=== PATIENT | male | born 1940 | race Caucasian/White ===

== ENCOUNTER → 2018-06-13 15:37 | Outpatient (CLI) | payer MEDICARE, SELFPAY | PROVIDERS: Family Provider Internal Medicine; PCP Internal Medicine; Referring Provider Otolaryngology Otolaryngology/Facial Plastic Surgery; Visit Provider Otolaryngology Otolaryngology/Facial Plastic Surgery | DX: H92.10 Otorrhea, unspecified ear (principal) | CPT/HCPCS: 87070; 87075; 87205 ==

== ENCOUNTER 2018-07-11 20:08 | Emergency (ER) | payer MEDICARE, SELFPAY ==
[2018-07-11 20:09] VITALS: BP 153/78; PULSE 68; RESP 18; TEMP 36.9; O2SAT 95; BMI 29.2
[2018-07-11 20:19] VITALS: O2SAT 97
--- NOTE | 2018-07-11 21:02 | CT_ITS ---
We are attempting to reach Yeimi Nuñez MD to discuss findings. An addendum with communication details will be sent when the communication is complete. STUDY: CT ABDOMEN AND PELVIS WITHOUT CONTRAST REASON FOR EXAM: Male, 78 years old. Pelvic injury riding a horse RADIATION DOSAGE (If Supplied By Facility): CTDIvol = ( 18.34 ) mGy, DLP = ( 1565.77 ) mGycm TECHNIQUE: Transaxial images were obtained from the dome of the diaphragm to the symphysis pubis without oral contrast, and without intravenous contrast. Sagittal and coronal images were reconstructed. Individualized dose optimization techniques were used for this CT. COMPARISON: None. FINDINGS: The visualized lung bases are unremarkable. There are coronary calcifications. Normal liver. Normal gallbladder and extrahepatic biliary system. Normal spleen. Normal pancreas. Normal bilateral adrenal glands. Normal right kidney. There is bilateral perinephric stranding. Normal visualized stomach. Normal small intestine. There is moderate stool in the colon. There is non-visualization of the appendix. Aorta is partially calcified. The infrarenal aorta measures 3.4 x 3.1 cm. Normal inferior vena cava. Normal retroperitoneum. The bladder is distended. There is fluid adjacent to the bilateral aspect of the bladder. There is a focus of 3.9 x 4.1 cm hematoma anterior to the bladder. The prostate is mildly enlarged. There is been a acute traumatic diastases of the symphysis pubis. There is adjacent hematoma and fluid tracking in the extraperitoneal spaces. There is a edematous appearance of the base of the penis. The sagittal view image #97 suggests that there may be a subtle fracture of the left side inferior pubic ramus. The bilateral acetabulum. A be intact. There is no evidence of fracture of the proximal femurs. There is degenerative change of the lumbar spine. There is multilevel disc space narrowing spondylosis. At the level of L2-3, to a greater degree L3-L4 and L4-L5 there is a broad disc osteophyte protrusion with moderate to severe neural foramina narrowing and moderate to severe central stenosis and particular the level of L3-L4. At L5-S1 there is a broad disc bulge and moderate neural foramina narrowing. There is vacuum phenomenon in the SI joints. They do not appear to be particularly widened. CT/Abdomen/Pelvis without Cont IMPRESSION: Findings are consistent with an acute diastases of the symphysis pubis with underlying extraperitoneal hematoma and a ligamentous injury. There is edema at the base of the penis. Recommend correlation with bladder laboratory values. Cannot entirely exclude a bladder rupture or injury. There is questionably a nondisplaced fracture of the left inferior pubic ramus. The SI joints are symmetric and degenerative. There is advanced degenerative change of the lower lumbar spine with severe neural foramina narrowing at the level of L3-L4 and L4-L5 with moderate to severe central stenosis. Coronary artery calcification. Electronically Signed: Raisa Jacome MD at 23:31 EDT Tel , Service support ,
[2018-07-11 21:18] VITALS: BP 163/87; PULSE 69; RESP 18; O2SAT 97
[2018-07-11] MEDS: 0.9% Normal Saline 1,000 ML 150 ML IV (21:18)
[2018-07-11 21:39] LABS: Absolute Lymphocyte Count 1.18 X10^3/ul (0.83-4.51); Absolute Neutrophil Count 9.4 X10^3/uL (2.0-7.7); Basophil# 0.02 X10^3/uL; Basophil% 0.2 % (0-1); Eosinophil# 0.23 X10^3/uL; Hematocrit 40.7 % (40-54); Hemoglobin 13.4 g/dl (13.0-16.5); Lymphocyte # 1.18 X10^3/ul (4.0); Lymphocyte % 10.2 % (19-41); Mean Corp Hgb Conc 32.9 g/gl (32-36); Mean Corpuscular Hgb 31.4 pg (27.0-32.0); Mean Corpuscular Volume 95.3 fL (80-94); Monocyte# 0.77 X10^3/uL; Monocyte% 6.6 % (0-10); Neutrophil # 9.39 X10^3/uL (2.7-7.7); Neutrophil % 80.8 % (47-70); Platelet Count 233 K/mm3 (150-450); RBC Distribution Width CV 13.2 % (11.6-14.6); RBC Distribution Width SD 45.7 fl (35.1-43.9); Red Blood Count 4.27 M/mm3 (4.6-6.2); White Blood Count 11.6 K/mm3 (4.4-11.0)
[2018-07-11 21:44] LABS: POSITIVE COUNT NO; POSITIVE DIFFERENTIAL NO; POSITIVE MORPHOLOGY NO
[2018-07-11 21:50] LABS: Anion Gap 6 (5-15); BUN 20 mg/dL (7-18); BUN/Creat Ratio 20.9 RATIO (10-20); Calcium,Total 8.7 mg/dL (8.5-10.1); Chloride 107 mmol/L (98-107); Creatinine, Serum 0.96 mg/dL (0.70-1.30); EST Glomerular Filtration Rate 81 mL/min (>60); Est Glom Filt Rate - Afr Amer 98 mL/min (>60); Estimated Creatinine Clearance 77.86 ml/min; Glucose 110 mg/dL (74-106); Potassium 4.5 mmol/L (3.5-5.1); Sodium Level 139 mmol/L (136-145)
[2018-07-11] MEDS: Morphine 4 MG/ML Syringe IV (22:06)
[2018-07-11] MEDS: Ondansetron 4 MG/2 ML Vial IV (22:06)
[2018-07-11 22:09] VITALS: BP 162/108; PULSE 67; RESP 16; O2SAT 94
[2018-07-11 23:16] VITALS: BP 170/81; PULSE 67; RESP 18; O2SAT 97
--- NOTE | 2018-07-12 00:02 | ED.DCSUM_ITS ---
- ER Visit Summary Date of Service: 07/11/18 Chief Complaint: [Pelvic injury] History of Present Illness: The patient is a 78 M [presents the emergency department complaint of a pelvic injury that occurred around 5 PM today. Patient states that he was riding a horse when the horse slipped forward and he was thrown back in the saddle and then abruptly forward again and felt a pop in the suprapubic area of his abdomen as he did the splits up against the front of the saddle. Patient unable to get off the horse or walk without assistance. Patient denies falling off of the horse. He denies any other injuries. Does describe some mild discomfort in his low back. Patient had some mild numbness in the right foot.] Physical Examination: HEENT-PERRLA, EOMI. Cranial nerves II through XII grossly intact. TMs clear. Mucous membranes moist. No adenopathy. Cardiovascular-regular rate and rhythm without murmur or ectopy Lungs-clear to auscultation, chest wall stable without crepitus or subcu emphysema Abdomen-normoactive bowel sounds, soft. Patient does have some tenderness over suprapubic region with some guarding. There is no rebound, rigidity, or perineal signs. There is no ecchymosis or bruising noted. There is no blood at the urethral meatus. No evidence of trauma to his penis or testicles. Back exam-patient has some mild tenderness diffusely about the lumbar spine. No ecchymosis or bruising noted. Extremities-intact ?4, normal range of motion, normal pulses, atraumatic] Test Results: [CBC with differential was normal. Chemistries were unremarkable. CT scan of the abdomen and pelvis without contrast showed findings consistent with acute diastasis of the symphysis pubis with underlying extraperitoneal hematoma and a ligamentous injury there is edema at the base of the penis. Recommend correlation with bladder lab values. Cannot entirely exclude bladder rupture or injury. There is questionably nondisplaced fracture of the left inferior pubic ramus. The SI joints are symmetric and degenerative. There is advanced degenerative change of the lower lumbar spine with severe neuroforaminal narrowing at level of L3-4 and L4-5 with moderate to severe central stenosis.] Emergency Department Course and Treatment: [Patient was medicated with morphine and Zofran. I discussed case with Dr. Markus Jessica who is on for orthopedics and given that patient cannot walk and will require admission he recommended transfer to tertiary care center.] Treatment Plan: [Case was discussed with [facility] physician Dr. Ayala who accepted transfer of patient.] Disposition: [Transfer to [facility]] Impression: [Diastasis of the pubic rami status post trauma Left inferior pubic ramus fracture Inability to ambulate] This note was generated with [employer] dictation software. It may contain incorrect words, spelling, and punctuation that were not noted in review of the chart prior to signing ED Disposition - Plan for ED Patient: Referrals: Kolby Singh MD [Primary Care Provider] -
[2018-07-12 00:20] LABS: Red Blood Cells-Urine 0 SEEN /hpf (0-5); White Blood Cells 0 SEEN /hpf (0-5)
[2018-07-12 00:22] LABS: Color, Urine Yellow (Yellow); Glucose, Dipstick Normal (Normal); Ketone-Dipstick Negative (Negative); Leukocyte Esterase-Dipstick Negative /ul (Negative); Nitrite-Dipstick Negative (Negative); Occult Blood-Urine Negative /ul (Negative); Protein-Dipstick Negative (Negative); Specific Gravity, Urine 1.015 (1.002-1.030); Urine Bilirubin Dipstick Negative (Negative); Urine Clarity Sl. Cloudy (Clear); Urine Urobilinogen 1 mg/dl (Normal); Urine pH 6.5 (5.0 - 8.0)
[2018-07-12 00:33] LABS: Bacteria RARE /hpf (None Seen); Mucous, Urine 1+ /hpf (<or=2+); Squamous Epithelial Cells - UA 0-5 SEEN /hpf (0-5)
[2018-07-12] MEDS: Morphine 4 MG/ML Syringe IV (00:38)
[2018-07-12 00:40] VITALS: BP 175/98; PULSE 65; RESP 17; TEMP 36.9; O2SAT 98
== END 2018-07-12 00:42 | disposition short-term general hospital (02) ==
LOC: ED 21:12
PROVIDERS: Emergency Provider Emergency Medicine; Family Provider Family Medicine; PCP Family Medicine
DX: S32.592A Other specified fracture of left pubis, initial encounter for closed fracture (principal); S36.81XA Injury of peritoneum, initial encounter; M48.061 Spinal stenosis, lumbar region without neurogenic claudication; X58.XXXA Exposure to other specified factors, initial encounter; Y93.52 Activity, horseback riding; Y92.9 Unspecified place or not applicable; Y99.9 Unspecified external cause status; I10 Essential (primary) hypertension; Z79.82 Long term (current) use of aspirin; Z79.899 Other long term (current) drug therapy
CPT/HCPCS: 74176; 80048; 81001; 85025; 96361; 96374; 96375; 96376; 99284; J7030; J2405

== ENCOUNTER 2020-09-27 09:21 | Inpatient (IN) | payer MEDICARE, SELFPAY ==
[2020-09-27 09:23] VITALS: BP 134/71; PULSE 68; RESP 16; TEMP 36.1; O2SAT 96; BMI 27.5
--- NOTE | 2020-09-27 09:50 | EKG12_ITS ---
Test Reason : ABD PAIN Blood Pressure : / mmHG Vent. Rate : 063 BPM Atrial Rate : 063 BPM P-R Int : 172 ms QRS Dur : 096 ms QT Int : 440 ms P-R-T Axes : 042 003 027 degrees QTc Int : 450 ms Normal sinus rhythm with sinus arrhythmia Nonspecific ST abnormality Abnormal ECG Confirmed by JEANNIE FRYE, YANIRA ([id number]), multimedia editor FREDA TAYLOR ([id number]) on 09/30/2020 1:46:51 PM Referred By: ASHLY Confirmed By:YANIRA DENNIS MD
--- NOTE | 2020-09-27 09:51 | CT_ITS ---
EXAM: CT ABDOMEN AND PELVIS WITH INTRAVENOUS CONTRAST CLINICAL INDICATION: Abdominal pain TECHNIQUE: Helically acquired images were obtained of the abdomen and pelvis with intravenous contrast. This CT exam was performed using one or more of the following dose reduction techniques: automated exposure control, adjustment of the mA and/or kV according to patient size, and/or use of iterative reconstruction technique. This report was created using [employer] report generation technology. CONTRAST: [id number] 100ML . Oral contrast was also given. COMPARISON: 07/11/2018 FINDINGS: LOWER THORAX: Coronary calcifications. Lung bases are clear. No cardiomegaly. No significant pericardial effusion. ABDOMEN: LIVER: Numerous ill-defined liver lesions, the largest measures about 3 cm concerning for metastases. GALLBLADDER AND BILE DUCTS: Unremarkable. No calcified gallstones. No gallbladder distention or wall edema. No intra- or extrahepatic biliary ductal dilation. PANCREAS: Unremarkable. No focal cystic or solid mass. SPLEEN: Unremarkable. Normal size without focal cystic or solid mass. Collateral veins and splenic hilum which may reflect portal venous hypertension. ADRENALS: Unremarkable. No nodules. KIDNEYS AND URETERS: Unremarkable. Normal renal size and position. No hydronephrosis. STOMACH AND BOWEL: Suboptimal evaluation of the colon due to underdistention. No focal inflammatory change. PELVIS: APPENDIX: No evidence of acute appendicitis. BLADDER: Unremarkable. REPRODUCTIVE: Slightly prominent prostate. ABDOMEN and PELVIS: INTRAPERITONEAL SPACE: Unremarkable. No ascites or other fluid collection. No free air. BONES/JOINTS: Fatty lesion likely lipoma anterior to the left hip. No suspicious lytic or blastic abnormality. SOFT TISSUES: Small bilateral inguinal hernias containing fat. VASCULATURE: Mild infrarenal abdominal aortic aneurysm measuring about 2.8 cm unchanged. Follow-up exam in 5 years recommended. Pressure. LYMPH NODES: Retroperitoneal adenopathy in the periaortic and pericaval regions. CT/Abdomen/Pelvis WITH Contrast IMPRESSION: 1. Numerous ill-defined liver lesions, the largest measures about 3 cm concerning for metastases. 2. Retroperitoneal adenopathy in the celiac axis, periaortic and pericaval regions. 3. Small bilateral inguinal hernias containing fat. 4. Collateral veins in the splenic hilum which may reflect portal venous hypertension. Electronically Signed: Jonathon Zepeda MD at 11:59 EDT Tel , Service support ,
--- NOTE | 2020-09-27 09:52 | ED.VIS.GI ---
HPI HPI - GI History of Present Illness Chief Complaint: Abd Pain Detail of Chief Complaint: Abdominal pain and generalized weakness for 3 weeks Informant: patient Narrative Narrative: Patient presents with abdominal bloating and fullness for about 3 weeks. He has had no appetite. He is lost about 15 to 20 pounds in the last 2 weeks. Patient saw his primary care physician 3 days ago and had an ultrasound of the gallbladder that showed a gallstone and a nodule on his liver. Patient tells me he had blood work as well. He denies fever. Has had no vomiting. He denies diarrhea. He denies blood in stool or black tarry stool. Prior similar symptoms: No PFSH PFSH Medical History (Updated 09/27/20 @ 12:[address] Yeimi Nuñez, ) GERD (gastroesophageal reflux disease) Hyperlipidemia Hypertension Wears hearing aid in both ears Home Medications Tamsulosin Hcl 4 mg PO QHS 07/11/18 [History Last Taken Unknown] aspirin [Aspir 81] 81 mg PO DAILY 07/11/18 [History Last Taken Unknown] lisinopril 20 mg PO DAILY 07/11/18 [History Last Taken 09/20/20] multivitamin with minerals [Multiple Vitamin] 1 ea PO DAILY 07/11/18 [History Last Taken Unknown] simvastatin 20 mg PO QHS 07/11/18 [History Last Taken Unknown] Allergy/AdvReac Type Severity Reaction Status Date / Time diphenhydramine Allergy Other Verified 09/27/20 09:25 [From Benadryl] Tetanus Vaccines and Toxoid AdvReac Other Verified 09/27/20 09:25 Surgical History (Updated 09/27/20 @ 10:01 by Latha Conklin) History of appendectomy Social History Smoking Status: Former smoker ROS ROS ED Constitutional Constitutional ED: Reports systems reviewed and no addt'l complaints, except as documented and weight loss; Denies body ache(s), change in weight or chills Eyes Eyes: Denies acute decrease in peripheral vision, change in vision, double vision or loss of vision ENT ENT ED: Reports none; Denies ear pain, lip swelling, loss taste/smell, neck pain, otalgia or sore throat Cardiovascular Cardiovascular: Reports none; Denies abdominal pain, chest pain with activity, leg edema, lightheadedness, palpitations, rapid heart rate or syncope Respiratory/Chest Respiratory/Chest: Reports none; Denies change in mental status, dry cough, dyspnea, hemoptysis, shortness of breath at rest or shortness of breath with exertion Gastrointestinal Gastrointestinal: Reports none, abdominal pain and nausea; Denies change in stool character, diarrhea, hematemesis, hematochezia, melena, rectal bleeding or vomiting Genitourinary Genitourinary ED: Reports none; Denies abdominal discomfort, anuria, dysuria, genital pain or polyuria Musculoskeletal Musculoskeletal: Reports none; Denies arthralgias, back pain, difficulty walking, extremity pain, muscle weakness or myalgias Integumentary Reports none; Denies abscess or rash Neurologic Neurologic: Reports none; Denies abnormal gait, confusion, focal weakness, frequent falls, headache(s), loss of vision, numbness, paresthesias, radicular pain, vertigo or weakness Psychiatric Psychiatric: Reports systems reviewed and no addt'l complaints, except as documented and none; Denies behavioral changes, confusion, difficulty concentrating, hallucinations, suicidal ideation, tactile hallucinations or visual hallucinations Endocrine Endocrinology: Denies none, cold intolerance, excessive sweating, fatigue or heat intolerance Hematologic/Lymphatic Hematologic/Lymphatic: Reports none; Denies anemia, easy bleeding or easy bruising Allergic/Immunologic Allergic/Immunologic ED: Denies as per HPI, none, lip swelling, mouth swelling, throat swelling, tongue swelling or hives EXAM Physical Exam Const Vital Signs: 09/27/20 09:23 09/27/20 12:46 Temperature 97.0 F L 97.9 F Temperature Source Temporal Temporal Pulse Rate 68 60 Respiratory Rate 16 16 Blood Pressure 134/71 H 176/86 H Blood Pressure Mean 92 116 Pulse Ox 96 94 Oxygen Delivery Method Room Air Room Air Positive well nourished and well developed General Appearance ED: well developed and NAD HEENT Reports TM's clear and moist mucous membranes normocephalic and atraumatic; Negative for trauma or tenderness Tympanic Membrane ED: Yes TM's clear Eyes PERRL and EOMs intact bilaterally General Eye ED: Negative for pale conjunctiva or scleral icterus Neck no lymphadenopathy, supple and no JVD General: Negative for tenderness Chest Wall inspection of chest normal and palpation of chest normal Chest: Negative for tenderness Resp normal respiratory effort and clear to auscultation bilaterally Effort and Inspection: Negative for respiratory distress or pain with movement Auscultation: Negative for rhonchi, wheezes or diminished lung sounds Cardio regular rate, regular rhythm, S1 normal heart sound, S2 normal heart sound and no murmurs Peripheral Pulses: pulses 2+ throughout GI normal to inspection, nondistended, normoactive bowel sounds, soft to palpation, non-distended and no masses Palpation: soft and tender RUQ Back/Spine no CVA tenderness and no thoracic nor lumbar tenderness Extremity normal to inspection General Extremety ED: Negative for edema General Extremity: Negative for edema Neuro oriented x3, CN's II-XII intact bilaterally, no sensory deficits noted and gait normal Sensorium / Orientation: awake, alert, oriented to person, oriented to place and oriented to time Motor Exam: strength 5/5 throughout and strength abnormal Psych mental status grossly normal Skin no rashes or lesions noted and no wounds MDM MDM MDM Narrative Medical decision making narrative: Patient had a CT scan of the abdomen and pelvis with IV and p.o. contrast that showed likely metastasis lesions to the liver with unknown source of primary. Patient had elevated liver enzymes and elevated total bilirubin. Case was discussed with hospitalist will evaluate patient for admission. Patient will receive a CT scan of the chest as well. Lab Data Attestation: I reviewed the patient's lab results. Labs: Laboratory Results - last 24 hr 09/27/20 09/27/20 09/27/20 10:05 10:05 10:05 WBC 8.3 RBC 3.95 L Hgb 13.0 Hct 39.8 L MCV 100.8 H MCH 32.9 H MCHC 32.7 RDW Std Deviation 57.1 H RDW Coeff of Areli 15.5 H Plt Count 288 MPV 10.9 Immature Gran % (Auto) 0.500 Neut % (Auto) 86.4 H Lymph % (Auto) 5.0 L [place] % (Auto) 7.6 Eos % (Auto) 0.4 Baso % (Auto) 0.1 Absolute Neuts (auto) 7.1 Absolute Lymphs (auto) 0.41 L Nucleated RBC % 0 Differential Comment SCANNED Sodium 137 Potassium 4.4 Chloride 100 Carbon Dioxide 26.0 Anion Gap 11 BUN 17 Creatinine 0.95 Estim Creat Clear Calc 74.12 Est GFR (MDRD) Af Amer 98 Est GFR (MDRD) Non-Af 81 BUN/Creatinine Ratio 17.9 Glucose 79 Lactic Acid 2.2 H* Calcium 9.5 Total Bilirubin 2.70 H AST 180 H ALT 95 H Alkaline Phosphatase 470 H Troponin I 0.038 Total Protein 6.6 Albumin 3.2 Globulin 3.4 Albumin/Globulin Ratio 0.9 Lipase 91 Total PSA 09/27/20 10:05 WBC RBC Hgb Hct MCV MCH MCHC RDW Std Deviation RDW Coeff of Areli Plt Count MPV Immature Gran % (Auto) Neut % (Auto) Lymph % (Auto) [place] % (Auto) Eos % (Auto) Baso % (Auto) Absolute Neuts (auto) Absolute Lymphs (auto) Nucleated RBC % Differential Comment Sodium Potassium Chloride Carbon Dioxide Anion Gap BUN Creatinine Estim Creat Clear Calc Est GFR (MDRD) Af Amer Est GFR (MDRD) Non-Af BUN/Creatinine Ratio Glucose Lactic Acid Calcium Total Bilirubin AST ALT Alkaline Phosphatase Troponin I Total Protein Albumin Globulin Albumin/Globulin Ratio Lipase Total PSA 0.50 Radiography Diagnostic Testing: Radiology Impression Abdomen/Pelvis CT 09/27/20 09:51 IMPRESSION: 1. Numerous ill-defined liver lesions, the largest measures about 3 cm concerning for metastases. 2. Retroperitoneal adenopathy in the celiac axis, periaortic and pericaval regions. 3. Small bilateral inguinal hernias containing fat. 4. Collateral veins in the splenic hilum which may reflect portal venous hypertension. Electronically Signed: Jonathon Zepeda MD at 11:59 EDT Tel , Service support , Chest X-Ray 09/27/20 12:04 IMPRESSION: No active pulmonary disease. Electronically Signed: Jonathon Zepeda MD at 12:21 EDT Tel , Service support , 1 view chest x-ray obtained interpreted by myself as no acute disease process. No masses and no infiltrates noted. Radiology in agreement. EKG Initial EKG: Comments: Sinus rhythm with a ventricular rate of [address] changes. Discharge Plan Triage Chief Complaint: Abd Pain ED Provider: Yeimi Nuñez Dx/Rx/DC Orders Clinical Impression: Weakness, Cancer, metastatic to liver Prescriptions: No Action aspirin [Aspir-81] 81 MG tablet,delayed release (DR/EC) 81 mg PO DAILY RF: 0 simvastatin 20 tablet 20 mg PO QHS RF: 0 multivitamin with minerals [Multiple Vitamin-Minerals] 1 EACH tablet 1 ea PO DAILY RF: 0 lisinopril 40 tablet 20 mg PO DAILY RF: 0 Tamsulosin Hcl 0.4 MG capsule 4 mg PO QHS RF: 0 Primary Care Provider: Kolby Singh Referrals: Kolby Singh MD [Primary Care Provider] - Disposition Disposition: Acute Care Hospital [facility]
[2020-09-27 10:25] LABS: Absolute Lymphocyte Count 0.41 X10^3/uL (0.83-4.51); Absolute Neutrophil Count 7.1 X10^3/uL (2.0-7.7); Basophil# 0.01 X10^3/uL; Basophil% 0.1 % (0-1); Eosinophil# 0.03 X10^3/uL; Eosinophils% 0.4 % (0-5); Hematocrit 39.8 % (40-54); Lymphocyte # 0.41 X10^3/ul (0.83-4.51); Mean Corp Hgb Conc 32.7 g/dL (32-36); Mean Corpuscular Hgb 32.9 pg (27.0-32.0); Mean Corpuscular Volume 100.8 fL (80-94); Mean Platelet Vol. 10.9 fl (6.2-12.0); Monocyte# 0.63 X10^3/uL; Monocyte% 7.6 % (0-10); NRBC Flagged by Analyzer 0 % (0-5); Neutrophil # 7.13 X10^3/uL (2.7-7.7); Neutrophil % 86.4 % (47-70); POSITIVE DIFFERENTIAL YES; Platelet Count 288 K/mm3 (150-450); RBC Distribution Width CV 15.5 % (11.6-14.6); RBC Distribution Width SD 57.1 fl (35.1-43.9); Red Blood Count 3.95 M/mm3 (4.6-6.2); White Blood Count 8.3 K/mm3 (4.4-11.0)
[2020-09-27 10:30] LABS: Differential Indicated SCAN CRITERIA MET
[2020-09-27 10:36] LABS: ALB/GLOB Ratio 0.9 RATIO (0.9-2.4); AST(SGOT) 180 U/L (15-37); Alanine Aminotransfer ALT/SGPT 95 U/L (16-61); Albumin, Serum 3.2 g/dL (3.2-5.0); Alkaline Phosphatase 470 U/L (45-117); Anion Gap 11 (5-15); BUN 17 mg/dL (7-18); BUN/Creat Ratio 17.9 RATIO (10-20); Calcium,Total 9.5 mg/dL (8.5-10.1); Chloride 100 mmol/L (98-107); Creatinine, Serum 0.95 mg/dL (0.70-1.30); EST Glomerular Filtration Rate 81 mL/min (>60); Est Glom Filt Rate - Afr Amer 98 mL/min (>60); Estimated Creatinine Clearance 74.12 ml/min; Globulin 3.4 g/dL (2.2-4.2); Glucose 79 mg/dL (74-106); Lipase 91 U/L (73-393); Potassium 4.4 mmol/L (3.5-5.1); Protein, Total 6.6 g/dL (6.4-8.2); Sodium Level 137 mmol/L (136-145)
[2020-09-27 10:49] LABS: Lactic Acid 2.2 mmol/L (0.4-1.9)
[2020-09-27 10:57] LABS: Differential Comment SCANNED
[2020-09-27] MEDS: 0.45% Normal Saline 1,000 ML 150 ML IV (11:44)
--- NOTE | 2020-09-27 12:04 | RAD_ITS ---
STUDY: X-RAY CHEST REASON FOR EXAM: Male, 80 years old. Weakness TECHNIQUE: Single AP portable view of the chest. COMPARISON: None. FINDINGS: Mild elevation of the right hemidiaphragm. Minimal atelectasis or scarring in the right lung base. No focal infiltrate is seen. There is no demonstrated pleural abnormality. Normal size heart. Normal mediastinum and caren. Normal visualized pulmonary arteries. There is atherosclerotic calcification of the aortic arch with tortuosity. Mild levoscoliosis of the thoracic spine. Old fracture of the left clavicle. There is no demonstrated abnormality of the visualized soft tissue structures of the upper abdomen. RAD/Chest 1 View (Portable) IMPRESSION: No active pulmonary disease. Electronically Signed: Jonathon Zepeda MD at 12:21 EDT Tel , Service support ,
--- NOTE | 2020-09-27 12:41 | CT_ITS ---
STUDY: CT CHEST WITHOUT CONTRAST REASON FOR EXAM: Male, 80 years old. Liver metastasis, cancer RADIATION DOSAGE (If Supplied By Facility): CTDIvol = ( 16.94 ) mGy, DLP = ( 600.97 ) mGycm TECHNIQUE: Transaxial imaging was performed without the administration of intravenous contrast material. Individualized dose optimization techniques were used for this CT. COMPARISON: None. FINDINGS: 3 mm right upper lobe nodule. No evidence of metastatic disease. No focal infiltrate is seen. There is no demonstrated pleural abnormality. Normal heart and pericardium. There are calcifications of the coronary arteries. No mediastinal nodes nonspecific. No definite adenopathy. Normal hilar regions. Normal unenhanced pulmonary arteries. There is atherosclerotic calcification of the aortic arch with tortuosity and elongation of the aortic arch and descending thoracic aorta. Degenerative changes in the spine. No demonstrated destructive bony process. No demonstrated acute process in the visualized upper abdomen. CT/Chest without Contrast IMPRESSION: 1. No evidence metastatic disease. 2. No focal acute infiltrate. 3. Nonspecific few mediastinal nodes. Electronically Signed: Jonathon Zepeda MD at 13:14 EDT Tel , Service support ,
[2020-09-27 12:46] VITALS: BP 176/86; PULSE 60; RESP 16; TEMP 36.6; O2SAT 94
--- NOTE | 2020-09-27 12:53 | HP.PCM.HOS_ITS ---
HPI - General HPI Narrative AMANDA SANTAMARIA, is a 80 M who presented to the emergency department at [facility] on 09/27/2020 with a chief complaint of abdominal pain and generalized weakness for 3 weeks. He reports he has a history of myasthenia and initially thought his fatigue and weakness was related to the this but he has had decreased appetite with a 15 to 20 pound weight loss in the last 2 to 3 weeks and abdominal fullness and early satiety. He saw his PCP 3 days ago and an ultrasound of the right upper quadrant was performed and showed a gallstone and a liver nodule. He was referred at that time to follow-up with general surgery but that appointment is not yet for 2 weeks. He came into the emergency department because he does not believe he can make it that long with his current condition. He states he has had regular colonoscopies and believes that his last one was within the last [address] Jin. He denies any diarrhea,'s constipation, melena, or bright red blood per rectum. He denies chest pain or shortness of breath, tingling, numbness, or focal weakness. He has had no nausea or vomiting and has no severe focal abdominal pain but just a generalized discomfort. In the emergency department his vital signs were relatively unremarkable other than uncontrolled hypertension. His CBC showed a macrocytosis without anemia. His his CMP showed normal electrolytes, normal renal function but his total bilirubin was elevated at 2.7, his AST was 180, his ALT was 45 and his alkaline phosphatase was 470. He had a mildly active elevated lactic acidosis at 2.2 but shows no signs of sepsis. The emergency department obtain a PSA and it was normal at 0.5. A CT of his abdomen and pelvi s was performed and showed numerous ill-defined liver lesions with the largest being 3 cm concerning for metastasis, retroperitoneal adenopathy in the celiac, periaortic, and pericaval area, small bilateral inguinal hernias containing fat and collateral veins in the splenic hilum which may reflect portal venous hypertension. He was given IV fluids in the emergency department. He will be admitted to medical surgical for further work-up [facility] Medical History (Updated 09/27/20 @ 13:[address] Aury Yuan DO) GERD (gastroesophageal reflux disease) Hyperlipidemia Hypertension Myasthenia gravis Wears hearing aid in both ears Home Medications Tamsulosin Hcl 4 mg PO QHS 07/11/18 [History Last Taken Unknown] aspirin [Aspir 81] 81 mg PO DAILY 07/11/18 [History Last Taken Unknown] lisinopril 20 mg PO DAILY 07/11/18 [History Last Taken 09/20/20] multivitamin with minerals [Multiple Vitamin] 1 ea PO DAILY 07/11/18 [History Last Taken Unknown] simvastatin 20 mg PO QHS 07/11/18 [History Last Taken Unknown] Allergy/AdvReac Type Severity Reaction Status Date / Time diphenhydramine Allergy Other Verified 09/27/20 09:25 [From Benadryl] Tetanus Vaccines and Toxoid AdvReac Other Verified 09/27/20 09:25 Family History (Updated 09/27/20 @ 13:[address] Aury Yuan DO) Other Colon cancer Surgical History History of appendectomy Social History Smoking Status: Former smoker ROS Review of Systems ROS Unobtainable: Denies due to encephalopathy, due to endotracheal tube, due to mental condition, due to mental status or other Constitutional Constitutional: Reports anorexia, change in weight, fatigue, malaise and weakness; Denies chills, fever(s) or night sweats Eyes Eyes: Denies blurry vision, change in eye color, change in vision, discharge from eye(s), double vision, erythema, eye pain, loss of vision or other ENT HEENT: Denies abnormal hearing, dysphagia, ear pain, epistaxis, headache(s), hearing loss, nasal congestion, nasal discharge, post nasal drip, sinus pressure, sore throat or other Cardiovascular Cardiovascular: Denies chest pain, claudication, dyspnea on exertion, edema, lightheadedness, orthopnea, palpitations, paroxysmal nocturnal dyspnea, rapid heart rate, syncope or other Respiratory/Chest Respiratory/Chest: Denies cough, dyspnea, excessive phlegm production, hemoptysis, productive cough, shortness of breath at rest, shortness of breath with exertion, wheezing or other Gastrointestinal Gastrointestinal: Reports anorexia, bloating, early satiety and weight changes; Denies abdominal pain, change in bowel habits, coffee ground emesis, constipation, diarrhea, dyspepsia, dysphagia, hematemesis, hematochezia, loose stools, melena, nausea or vomiting Genitourinary Genitourinary: Denies burning urination, difficulty urinating, dysuria, hematuria, nocturia, urinary frequency, urinary hesitancy, urinary incontinence, urinary urgency or other Musculoskeletal Musculoskeletal: Reports joint pain; Denies arthralgias, back pain, joint stiffness, joint swelling, myalgias, neck pain or other Neurologic Neurologic: Denies abnormal gait, abnormal speech, confusion, disequilibrium, dizziness, focal weakness, headache(s), numbness, paresthesias, seizure-like activity, seizures, syncope, tingling, tremor(s) or other Psychiatric Psychiatric: Denies anxiety, depression, homicidal ideation, suicidal ideation or other Endocrine Endocrinology: Denies change in body appearance, cold intolerance, excessive sweating, heat intolerance, polydipsia, polyuria or other Hematologic/Lymphatic Hematologic/Lymphatic: Denies anemia, easy bleeding, easy bruising, lymphadenopathy or other Allergic/Immunologic Allergic/Immunologic: Denies rhinitis, hives, eczemia, asthma or other Vital Signs Vital Signs Vital Signs: 09/27/20 09:23 09/27/20 12:46 Temperature 97.0 F L 97.9 F Temperature Source Temporal Temporal Pulse Rate 68 60 Respiratory Rate 16 16 Blood Pressure 134/71 H 176/86 H Blood Pressure Mean 92 116 Pulse Ox 96 94 Oxygen Delivery Method Room Air Room Air Weight Weight: 99.79 kg Body Mass Index (BMI) 27.5 Physical Exam Const alert, oriented x3 and no apparent distress Constitutional Narrative: Overweight older white male sitting up in bed, appears comfortable, at bedside, nontoxic General Appearance: cooperative HEENT normocephalic, head/scalp atraumatic, moist oral mucous membranes and oropharynx normal Mouth: oral and palatal mucosa normal Eyes PERRL, EOMs intact bilaterally, conjunctivae normal and no scleral icterus EOM: EOM abnormal Neck no lymphadenopathy, supple, no JVD and no carotid bruits Resp normal respiratory effort, no retractions, no use of accessory muscles and clear to auscultation bilaterally Cardio regular rate, regular rhythm, S1 normal heart sound, S2 normal heart sound, no murmurs, no rub, no gallops, no clicks and no JVD GI normal to inspection, nondistended, normoactive bowel sounds, soft to palpation, non-tender and non-distended; Negative for hepatosplenomegaly Extremity normal to inspection, full ROM and no clubbing, cyanosis or edema Peripheral Pulses: Yes pulses 2+ throughout Skin no rashes or lesions noted, no wounds, skin turgor normal, no jaundice, no petechiae and no mottling Neuro oriented x3, CN's II-XII intact bilaterally, moves all extremities and no focal motor deficits Sensorium / Orientation: awake, alert, oriented to person, oriented to place and oriented to time Motor Exam: strength 5/5 throughout Deep Tendon Reflexes: Rt Brachioradialis (C6): 2+, Lt Brachioradialis (C6): 2+, Rt Patellar (L4): 2+ and Lt Patellar (L4): 2+ Psych affect normal Psych Narrative: Very pleasant Lab / Micro Data Attestation: I reviewed the patient's lab results. Result Diagrams: 09/27/20 10:05 09/27/20 10:05 Labs: Laboratory Results - last 24 hr 09/27/20 09/27/20 09/27/20 10:05 10:05 10:05 WBC 8.3 RBC 3.95 L Hgb 13.0 Hct 39.8 L MCV 100.8 H MCH 32.9 H MCHC 32.7 RDW Std Deviation 57.1 H RDW Coeff of Areli 15.5 H Plt Count 288 MPV 10.9 Immature Gran % (Auto) 0.500 Neut % (Auto) 86.4 H Lymph % (Auto) 5.0 L [place] % (Auto) 7.6 Eos % (Auto) 0.4 Baso % (Auto) 0.1 Absolute Neuts (auto) 7.1 Absolute Lymphs (auto) 0.41 L Nucleated RBC % 0 Differential Comment SCANNED Sodium 137 Potassium 4.4 Chloride 100 Carbon Dioxide 26.0 Anion Gap 11 BUN 17 Creatinine 0.95 Estim Creat Clear Calc 74.12 Est GFR (MDRD) Af Amer 98 Est GFR (MDRD) Non-Af 81 BUN/Creatinine Ratio 17.9 Glucose 79 Lactic Acid 2.2 H* Calcium 9.5 Total Bilirubin 2.70 H AST 180 H ALT 95 H Alkaline Phosphatase 470 H Troponin I 0.038 Total Protein 6.6 Albumin 3.2 Globulin 3.4 Albumin/Globulin Ratio 0.9 Lipase 91 Total PSA 09/27/20 10:05 WBC RBC Hgb Hct MCV MCH MCHC RDW Std Deviation RDW Coeff of Areli Plt Count MPV Immature Gran % (Auto) Neut % (Auto) Lymph % (Auto) [place] % (Auto) Eos % (Auto) Baso % (Auto) Absolute Neuts (auto) Absolute Lymphs (auto) Nucleated RBC % Differential Comment Sodium Potassium Chloride Carbon Dioxide Anion Gap BUN Creatinine Estim Creat Clear Calc Est GFR (MDRD) Af Amer Est GFR (MDRD) Non-Af BUN/Creatinine Ratio Glucose Lactic Acid Calcium Total Bilirubin AST ALT Alkaline Phosphatase Troponin I Total Protein Albumin Globulin Albumin/Globulin Ratio Lipase Total PSA 0.50 Radiology Impression Abdomen/Pelvis CT 09/27/20 09:51 IMPRESSION: 1. Numerous ill-defined liver lesions, the largest measures about 3 cm concerning for metastases. 2. Retroperitoneal adenopathy in the celiac axis, periaortic and pericaval regions. 3. Small bilateral inguinal hernias containing fat. 4. Collateral veins in the splenic hilum which may reflect portal venous hypertension. Electronically Signed: Jonathon Zepeda MD at 11:59 EDT Tel , Service support , Chest X-Ray 09/27/20 12:04 IMPRESSION: No active pulmonary disease. Electronically Signed: Jonathon Zepeda MD at 12:21 EDT Tel , Service support , Assessment & Plan Assessment/Plan (1) Weight loss: (2) Weakness: (3) Lactic acidosis: (4) Hyperbilirubinemia: (5) Transaminitis: (6) Liver masses: PLAN: Multiple liver masses -Suspect metastatic disease -Primary is unknown -CT-guided biopsy ordered -PSA was negative in the emergency department, check CEA and CA 19-9 -A need EGD -Once primary is delineated we will consult oncology and possibly general surgery depending on primary -No urgent needs for consultations at this time Weight loss/poor p.o. intake -Liberalize diet -Supplements added -As needed Zofran -LR at 75 cc/h continuous to maintain hydration Lactic acidosis -Mild -No signs of sepsis -Suspect related to dehydration Transaminitis/hyperbilirubinemia -Suspect related to liver process -Work-up in progress -See above History of myasthenia gravis -Patient does not appear to be on any suppressive medications at baseline i.e. Mestinon -Continue to monitor Hypertension Continue lisinopril 20 mg daily -As needed hydralazine Hyperlipidemia -Continue simvastatin BPH -Continue Flomax DVT prophylaxis -Lovenox 40 mg daily CODE STATUS -Full code Visit Charges Inpatient E&M: 19371 Subs Hosp L3
[2020-09-27 13:37] LABS: Bacteria 0 SEEN /hpf (None Seen); Red Blood Cells-Urine 0 SEEN /hpf (0-5); Squamous Epithelial Cells - UA 0 SEEN /hpf (0-5); White Blood Cells 0 SEEN /hpf (0-5)
[2020-09-27 13:47] LABS: Color, Urine Yellow (Yellow); Glucose, Dipstick Normal (Normal); Leukocyte Esterase-Dipstick 25 /ul (Negative); Nitrite-Dipstick Negative (Negative); Occult Blood-Urine Negative /ul (Negative); Protein-Dipstick 30 mg/dl (Negative); Specific Gravity, Urine 1.015 (1.002-1.030); Urine Clarity Clear (Clear); Urine Urobilinogen 8 mg/dl (Normal)
[2020-09-27 13:48] LABS: Ketone-Dipstick 150 mg/dl (Negative); Urine Bilirubin Dipstick 1 mg/dL (Negative)
--- NOTE | 2020-09-27 13:51 | ED.RN ---
call from lab, urine ketones 150, Dr Escamilla aware
[2020-09-27 13:55] LABS: Mucous, Urine 1+ /hpf (<or=2+)
[2020-09-27 14:11] LABS: Reflex Lactate? Y
[2020-09-27 14:17] VITALS: BMI 28.3
[2020-09-27 14:41] VITALS: BP 163/76; PULSE 70; RESP 20; TEMP 37.2; O2SAT 96
[2020-09-27 15:17] VITALS: O2SAT 94
[2020-09-27] MEDS: Lactated Ringers 1,000 ML 75 ML IV (16:56)
[2020-09-27] MEDS: Enoxaparin 40 MG/0.4 ML Syringe SC (17:01)
[2020-09-27 17:05] LABS: Platelet Count 269 K/mm3 (150-450)
[2020-09-27 17:15] LABS: International Normalized Ratio 1.1; Prothrombin Time (Protime)PT. 13.8 SECONDS (11.7-14.9)
[2020-09-27] MEDS: Ondansetron 4 MG/2 ML Vial IV (19:57)
[2020-09-27 20:51] VITALS: BP 143/68; PULSE 67; RESP 16; TEMP 36.8; O2SAT 95
[2020-09-27] MEDS: Atorvastatin Calcium 10 MG Tablet PO (20:58)
[2020-09-27] MEDS: Tamsulosin HCl 0.4 MG Capsule PO (20:59)
[2020-09-28 03:23] VITALS: BP 147/58; PULSE 68; RESP 16; TEMP 36.8; O2SAT 96
[2020-09-28] MEDS: Mag Hydrox/Al Hydrox/Simeth 30 ML UDC PO (03:35)
--- NOTE | 2020-09-28 03:43 | EKG12_ITS ---
Test Reason : CHEST PAIN Blood Pressure : / mmHG Vent. Rate : 065 BPM Atrial Rate : 065 BPM P-R Int : 178 ms QRS Dur : 096 ms QT Int : 418 ms P-R-T Axes : 041 016 043 degrees QTc Int : 434 ms Normal sinus rhythm with sinus arrhythmia Low voltage QRS (Limb Leads) Confirmed by CRISTY FRYE, LILIANE ([id number]), make up editor FREDA TAYLOR ([id number]) on 10/01/2020 1:09:46 PM Referred By: MASHA Confirmed By:LILIANE MUNIZ MD
--- NOTE | 2020-09-28 04:05 | NURSING ---
Isaura administered @ 2248. Chest pain assessed at this time during pt rounding. Pt states I belched a couple times and denies chest pain. Will continue to monitor and assess.
[2020-09-28 04:15] LABS: Absolute Lymphocyte Count 0.58 X10^3/uL (0.83-4.51); Absolute Neutrophil Count 5.4 X10^3/uL (2.0-7.7); Basophil# 0.01 X10^3/uL; Basophil% 0.2 % (0-1); Eosinophil# 0.06 X10^3/uL; Eosinophils% 0.9 % (0-5); Hematocrit 35.5 % (40-54); Hemoglobin 11.8 g/dL (13.0-16.5); Lymphocyte # 0.58 X10^3/ul (0.83-4.51); Lymphocyte % 8.8 % (19-41); Mean Corp Hgb Conc 33.2 g/dL (32-36); Mean Corpuscular Hgb 33.6 pg (27.0-32.0); Mean Corpuscular Volume 101.1 fL (80-94); Mean Platelet Vol. 10.5 fl (6.2-12.0); Monocyte% 7.6 % (0-10); NRBC Flagged by Analyzer 0 % (0-5); Neutrophil # 5.39 X10^3/uL (2.7-7.7); POSITIVE DIFFERENTIAL YES; Platelet Count 260 K/mm3 (150-450); RBC Distribution Width CV 15.7 % (11.6-14.6); RBC Distribution Width SD 57.2 fl (35.1-43.9); Red Blood Count 3.51 M/mm3 (4.6-6.2); White Blood Count 6.6 K/mm3 (4.4-11.0)
[2020-09-28 04:20] LABS: Differential Indicated SCAN CRITERIA MET
[2020-09-28 05:06] LABS: Anisocytosis 1+; Differential Comment SCANNED; Macrocytosis 1+
[2020-09-28 05:46] LABS: AST(SGOT) 213 U/L (15-37); Alanine Aminotransfer ALT/SGPT 105 U/L (16-61); Albumin, Serum 2.8 g/dL (3.2-5.0); Alkaline Phosphatase 474 U/L (45-117); Anion Gap 9 (5-15); BUN 16 mg/dL (7-18); BUN/Creat Ratio 20.5 RATIO (10-20); Calcium,Total 8.8 mg/dL (8.5-10.1); Chloride 97 mmol/L (98-107); Creatinine, Serum 0.78 mg/dL (0.70-1.30); EST Glomerular Filtration Rate 101 mL/min (>60); Est Glom Filt Rate - Afr Amer 123 mL/min (>60); Estimated Creatinine Clearance 72.33 ml/min; Globulin 2.8 g/dL (2.2-4.2); Glucose 97 mg/dL (74-106); Magnesium 1.8 mg/dL (1.6-2.6); Phosphorus 3.1 mg/dL (2.5-4.9); Potassium 4.4 mmol/L (3.5-5.1); Protein, Total 5.6 g/dL (6.4-8.2); Sodium Level 135 mmol/L (136-145); Thyroid Stim Hormone (TSH) 1.98 uIU/mL (0.358-3.74)
[2020-09-28] MEDS: Lactated Ringers 1,000 ML 75 ML IV (06:20)
[2020-09-28 07:48] VITALS: O2SAT 90
[2020-09-28] MEDS: Ondansetron 4 MG/2 ML Vial IV ×2 (08:01→20:54)
[2020-09-28 09:20] VITALS: BP 127/74; PULSE 63; RESP 14; TEMP 37; O2SAT 92
[2020-09-28] MEDS: Aspirin E.C. 81 MG Tablet PO (09:26)
[2020-09-28] MEDS: Enoxaparin 40 MG/0.4 ML Syringe SC (09:26)
[2020-09-28] MEDS: Lisinopril 20 MG Tablet PO (09:26)
--- NOTE | 2020-09-28 12:03 | NT.THERAPY_ITS ---
Medical Nutrition Therapy - History Nutrition Services has been consulted to:: Manage nutrient details of diet order Current diet/nutrition support order:: Regular Ensure enlive 120 ml TID - Anthropometric Measurements Height:: 6 ft 4 in Weight:: 105.9 kg - Relevant Labs Relevant Labs:: RBC 3.51 M/mm3 (4.6-6.2) L 09/28/20 03:54 Hgb 11.8 g/dL (13.0-16.5) L 09/28/20 03:54 Hct 35.5 % (40-54) L 09/28/20 03:54 MCV 101.1 fL (80-94) H 09/28/20 03:54 MCH 33.6 pg (27.0-32.0) H 09/28/20 03:54 RDW Std Deviation 57.2 fl (35.1-43.9) H 09/28/20 03:54 RDW Coeff of Areli 15.7 % (11.6-14.6) H 09/28/20 03:54 Neut % (Auto) 82.0 % (47-70) H 09/28/20 03:54 Lymph % (Auto) 8.8 % (19-41) L 09/28/20 03:54 Absolute Lymphs (auto) 0.58 X10^3/uL (0.83-4.51) L 09/28/20 03:54 Sodium 135 mmol/L (136-145) L 09/28/20 03:54 Chloride 97 mmol/L (98-107) L 09/28/20 03:54 BUN/Creatinine Ratio 20.5 RATIO (10-20) H 09/28/20 03:54 Lactic Acid 2.2 mmol/L (0.4-1.9) H* 09/27/20 10:05 Total Bilirubin 1.80 mg/dL (0.20-1.00) H 09/28/20 03:54 AST 213 U/L (15-37) H 09/28/20 03:54 ALT 105 U/L (16-61) H 09/28/20 03:54 Alkaline Phosphatase 474 U/L (45-117) H 09/28/20 03:54 Total Protein 5.6 g/dL (6.4-8.2) L 09/28/20 03:54 Albumin 2.8 g/dL (3.2-5.0) L 09/28/20 03:54 - Assessment Food and Nutrient Intake: Reports terrible appetite/intake x 1 month. States was tolerating and able to consume some oatmeal/cream of wheat/applesauce/smoothies or soup at meals but 2 weeks ago intake declined further and only consume bites of food. Has Boost at home but does not consume regularly. Notes wt loss 15# x 2 weeks w/ UBW 246#, notes wt on scale at home 228#-- CBW 233.2 lbs indicating 5% wt loss x 2 weeks (severe). No wt hx per EMR. Denies D/C- notes small emesis this morning after eating b-fast. - Nutrition Diagnosis: Clinical Problem Acute Disease or Injury Related Malnutrition Clinical Problem - Etiology: Severe malnutrition in the context of acute illness RT inadequate oral intake & unintentional wt loss Clinical Problem - Signs/Symptoms: AEB pt reports </=50% energy intake compared to estimated energy needs x >/= 2 weeks and wt loss 5% x 2 weeks. - Protein Calorie Malnutrition Evidence of Malnutrition Exists: Yes Severe Protein Calorie Malnutrition:: Acute Illness/Injury - Nutrition Intervention Nutrition Prescription: 3916-3984 calories (25 kcal/kg). 90-100 g protein (0.8- 1 g/kg). 7579-4577 calories (25 ml/kg) - Food / Nutrient Delivery Interventions Summary of nutrition intervention:: Provide oral nutrition supplement Nutrition support ordered as / adjusted to:: Continue regular diet & ONS w/ medpass. Will provide ensure pudding & magic cup w/ pt meals for additional rere/pro if consumed. Nutrition education provided?: No - MNT Monitoring Active Nutrition Patient: Yes Nutrition Status: Requires Follow Up 3-5 Days
--- NOTE | 2020-09-28 13:16 | PCM.PN.HOSP ---
Subjective Subjective Patient reports that he tried to eat some of breakfast sandwich this morning and had an emesis. He had not had any nausea or vomiting prior to this. He did have some chest pain overnight that he states was relieved with milk of magnesia. Oral intake continues to be a problem but he was able to get supplements down last evening. His is going to bring some smoothies for him today. Objective Data Objective Data Vital Signs: Vital Signs Temp Pulse Resp BP Pulse Ox 98.6 F 63 14 127/74 H 92 09/28/20 09:20 09/28/20 09:20 09/28/20 09:20 09/28/20 09:20 09/28/20 09:20 Oxygen Delivery Method Room Air Weight: 105.9 kg Body Mass Index (BMI) 28.3 Intake & Output: Intake and Output for Last 24 Hours 09/26/20 09/27/20 09/28/20 23:59 23:59 23:59 Intake Total 1007.5 / 1307.5 1810 / 1810 Balance 1007.5 / 1307.5 1810 / 1810 Lab / Micro Data Result Diagrams: 09/28/20 03:54 09/28/20 03:54 Labs: Laboratory Results - last 24 hr 09/27/20 09/27/20 09/27/20 13:30 16:45 16:45 WBC RBC Hgb Hct MCV MCH MCHC RDW Std Deviation RDW Coeff of Areli Plt Count 269 MPV Immature Gran % (Auto) Neut % (Auto) Lymph % (Auto) [place] % (Auto) Eos % (Auto) Baso % (Auto) Absolute Neuts (auto) Absolute Lymphs (auto) Nucleated RBC % Differential Comment Anisocytosis Macrocytosis PT 13.8 INR 1.1 APTT 28.0 Sodium Potassium Chloride Carbon Dioxide Anion Gap BUN Creatinine Estim Creat Clear Calc Est GFR (MDRD) Af Amer Est GFR (MDRD) Non-Af BUN/Creatinine Ratio Glucose Calcium Phosphorus Magnesium Total Bilirubin AST ALT Alkaline Phosphatase Troponin I Total Protein Albumin Globulin Albumin/Globulin Ratio TSH Urine Color Yellow Urine Clarity Clear Urine pH 5.0 Ur Specific [place] 1.015 Urine Protein 30 H Urine Glucose (UA) Normal Urine Ketones 150 A* Urine Occult Blood Negative Urine Nitrite Negative Urine Bilirubin 1 H Urine Urobilinogen 8 H Ur Leukocyte Esterase 25 H Urine RBC 0 SEEN Urine WBC 0 SEEN Ur Squamous Epith Cells 0 SEEN Urine Bacteria 0 SEEN Urine Mucus 1+ 09/28/20 09/28/20 09/28/20 03:54 03:54 03:54 WBC 6.6 RBC 3.51 L Hgb 11.8 L Hct 35.5 L MCV 101.1 H MCH 33.6 H MCHC 33.2 RDW Std Deviation 57.2 H RDW Coeff of Areli 15.7 H Plt Count 260 MPV 10.5 Immature Gran % (Auto) 0.500 Neut % (Auto) 82.0 H Lymph % (Auto) 8.8 L [place] % (Auto) 7.6 Eos % (Auto) 0.9 Baso % (Auto) 0.2 Absolute Neuts (auto) 5.4 Absolute Lymphs (auto) 0.58 L Nucleated RBC % 0 Differential Comment SCANNED Anisocytosis 1+ Macrocytosis 1+ PT INR APTT Sodium 135 L Potassium 4.4 Chloride 97 L Carbon Dioxide 29.0 Anion Gap 9 BUN 16 Creatinine 0.78 Estim Creat Clear Calc 72.33 Est GFR (MDRD) Af Amer 123 Est GFR (MDRD) Non-Af 101 BUN/Creatinine Ratio 20.5 H Glucose 97 Calcium 8.8 Phosphorus 3.1 Magnesium 1.8 Total Bilirubin 1.80 H AST 213 H ALT 105 H Alkaline Phosphatase 474 H Troponin I 0.045 Total Protein 5.6 L Albumin 2.8 L Globulin 2.8 Albumin/Globulin Ratio 1.0 TSH 1.98 Urine Color Urine Clarity Urine pH Ur Specific [place] Urine Protein Urine Glucose (UA) Urine Ketones Urine Occult Blood Urine Nitrite Urine Bilirubin Urine Urobilinogen Ur Leukocyte Esterase Urine RBC Urine WBC Ur Squamous Epith Cells Urine Bacteria Urine Mucus Physical Exam Const alert, oriented x3 and no apparent distress Constitutional Narrative: Overweight older white male sitting up in bed, watching television, very pleasant General Appearance: cooperative Exam Limitations: no limitations HEENT normocephalic, head/scalp atraumatic and moist oral mucous membranes Head and Scalp: normocephalic Eyes PERRL, EOMs intact bilaterally and no scleral icterus EOM: EOM abnormal Resp normal respiratory effort, no retractions, no use of accessory muscles and clear to auscultation bilaterally Cardio regular rate, regular rhythm, S1 normal heart sound, S2 normal heart sound, no murmurs, no rub, no gallops, no clicks and no JVD GI normal to inspection, nondistended, normoactive bowel sounds, soft to palpation, non-tender and non-distended; Negative for hepatosplenomegaly Extremity normal to inspection, full ROM and no clubbing, cyanosis or edema Peripheral Pulses: Yes pulses 2+ throughout Neuro oriented x3, CN's II-XII intact bilaterally, moves all extremities and no focal motor deficits Sensorium / Orientation: awake, alert, oriented to person, oriented to place and oriented to time Speech: speech normal Deep Tendon Reflexes: Rt Brachioradialis (C6): 2+, Lt Brachioradialis (C6): 2+, Rt Patellar (L4): 2+ and Lt Patellar (L4): 2+ Psych affect normal Psych Narrative: Very pleasant Assessment & Plan Assessment/Plan (1) Liver masses: (2) Transaminitis: (3) Hyperbilirubinemia: (4) Weight loss: (5) Weakness: (6) Lactic acidosis: PLAN: Multiple liver masses -Suspect metastatic disease -Primary is unknown -CT-guided biopsy ordered--> will be done on Tuesday -CT chest was unremarkable -PSA was negative in the emergency department -CEA and CA 19-9 are pending -Discussed this case with Dr. Sprague this morning from surgery he agrees with obtaining tissue samples first and then he will perform an EGD and colonoscopy -General surgery consult placed -Oncology consultation versus outpatient follow-up once tissue is obtained and results are noted Weight loss/poor p.o. intake -Liberalized diet -Supplements -As needed Zofran -Continue LR at 50 cc/h continuous to maintain hydration Lactic acidosis -Mild -No signs of sepsis -Suspect related to dehydration Transaminitis/hyperbilirubinemia -Suspect related to liver process and appears to be obstructive in nature -Bilirubin has improved but transaminases and alk phos remained stably elevated -Work-up in progress -Repeat CMP in a.m. History of myasthenia gravis -Patient does not appear to be on any suppressive medications at baseline i.e. Mestinon -Continue to monitor Hypertension -Continue lisinopril 20 mg daily -As needed hydralazine Hyperlipidemia -Continue simvastatin BPH -Continue Flomax DVT prophylaxis -Lovenox 40 mg daily CODE STATUS -Full code Visit Charges Inpatient E&M: 27789 Subs Hosp L2
[2020-09-28 13:54] LABS: Carbohydrate AG 19-9 < 2 U/mL (0-35)
[2020-09-28 15:20] VITALS: BP 137/78; PULSE 64; RESP 16; TEMP 37.1; O2SAT 94
[2020-09-28] MEDS: 0.9% Saline Lock 10 ML Syringe IV (20:54)
[2020-09-28] MEDS: MELATONIN 3 MG TABLET PO (20:54)
[2020-09-28] MEDS: Atorvastatin Calcium 10 MG Tablet PO (20:55)
[2020-09-28] MEDS: Lactated Ringers 1,000 ML 50 ML IV (20:55)
[2020-09-28] MEDS: Tamsulosin HCl 0.4 MG Capsule PO (20:55)
[2020-09-28 21:02] VITALS: BP 146/70; PULSE 64; RESP 14; TEMP 36.9; O2SAT 96
[2020-09-29 03:04] VITALS: BP 131/67; PULSE 61; RESP 24; TEMP 36.9; O2SAT 98
[2020-09-29 06:49] LABS: ALB/GLOB Ratio 0.9 RATIO (0.9-2.4); AST(SGOT) 273 U/L (15-37); Alanine Aminotransfer ALT/SGPT 122 U/L (16-61); Albumin, Serum 2.8 g/dL (3.2-5.0); Alkaline Phosphatase 506 U/L (45-117); Anion Gap 7 (5-15); BUN 14 mg/dL (7-18); BUN/Creat Ratio 15.7 RATIO (10-20); Calcium,Total 9.4 mg/dL (8.5-10.1); Chloride 101 mmol/L (98-107); Creatinine, Serum 0.89 mg/dL (0.70-1.30); EST Glomerular Filtration Rate 87 mL/min (>60); Est Glom Filt Rate - Afr Amer 105 mL/min (>60); Estimated Creatinine Clearance 81.27 ml/min; Globulin 3.1 g/dL (2.2-4.2); Glucose 89 mg/dL (74-106); Potassium 4.6 mmol/L (3.5-5.1); Protein, Total 5.9 g/dL (6.4-8.2); Sodium Level 136 mmol/L (136-145)
--- NOTE | 2020-09-29 07:32 | EX.PCM.CON.S ---
Assessment & Plan Assessment/Plan (1) Liver masses: PLAN: The patient has elevated LFTs and multiple liver lesions suggestive of malignant disease. The patient's last colonoscopy was over 5 years ago the patient thinks. The patient is having a biopsy of the liver tomorrow. I discussed performing EGD and colonoscopy with the patient he would like this done as soon as possible so I will perform this on Tuesday. I will plan for bowel prep after the liver biopsy tomorrow. I explained endoscopy in detail to the patient. I explained the risks including but not limited to stroke or heart attack with anesthesia, perforation of the GI tract, bleeding, infection. I explained that any of these could necessitate further emergency surgery. The patient understands and all questions were answered sufficiently. The patient wishes to proceed with procedure. Jozef Sprague MD Pager: [facility] [address] [place] [address], [address] [place] [address] Office: HPI Consult Data Date of Consult: 09/29/20 HPI Narrative HPI Narrative: AMANDA SANTAMARIA, is a 80 M who presented to the emergency room with abdominal pain. The patient has been having abdominal pain as well as weakness and weight loss and decreased appetite over the last few weeks to a month. Patient does not note any blood in his stool. The patient reports that his last colonoscopy was with Dr. Jin but he does not remember when it was. I asked him if he was in the last 5 years and he thinks it might have been longer. [facility] Medical History (Updated 09/27/20 @ 13:[address] Aury Yuan DO) GERD (gastroesophageal reflux disease) Hyperlipidemia Hypertension Myasthenia gravis Wears hearing aid in both ears Home Medications Tamsulosin Hcl 4 mg PO QHS 07/11/18 [History Last Taken 09/26/20] aspirin [Aspir 81] 81 mg PO DAILY 07/11/18 [History Last Taken 09/26/20] lisinopril 20 mg PO DAILY 07/11/18 [History Last Taken 09/20/20] multivitamin with minerals [Multiple Vitamin] 1 ea PO DAILY 07/11/18 [History Last Taken 09/26/20] simvastatin 20 mg PO QHS 07/11/18 [History Last Taken 09/26/20] azathioprine 200 mg PO DAILY 09/27/20 [History Last Taken 09/26/20] prednisone 7.5 mg PO DAILY 09/27/20 [History Last Taken 09/26/20] pyridostigmine bromide 30 mg PO BID 09/27/20 [History Last Taken 09/26/20] Allergy/AdvReac Type Severity Reaction Status Date / Time diphenhydramine Allergy Other Verified 09/27/20 09:25 [From Benadryl] Tetanus Vaccines and Toxoid AdvReac Other Verified 09/27/20 09:25 Family History (Updated 09/27/20 @ 13:[address] Aury Yuan DO) Other Colon cancer Surgical History History of appendectomy Social History Smoking Status: Former smoker ROS Constitutional Constitutional: Reports anorexia, fatigue and weight loss Eyes Eyes: Reports systems reviewed and no addt'l complaints, except as documented ENT HEENT: Reports systems reviewed and no addt'l complaints, except as documented Cardiovascular Cardiovascular: Denies chest pain Respiratory/Chest Respiratory/Chest: Reports systems reviewed and no addt'l complaints, except as documented; Denies cough Gastrointestinal Gastrointestinal: Reports abdominal pain; Denies coffee ground emesis, constipation or rectal bleeding Genitourinary Genitourinary: Denies change in urinary stream Musculoskeletal Musculoskeletal: Denies abnormal gait Integumentary Integumentary: Denies jaundice Neurologic Neurologic: Denies dizziness Psychiatric Psychiatric: Denies anxiety Endocrine Endocrinology: Denies flushing Physical Exam Const alert and oriented x3 Eyes PERRL Neck full ROM Lymph Lymphatic: no lymphadenopathy noted Resp normal respiratory effort and normal air movement Cardio regular rate and regular rhythm Rate: regular rate Rhythm: regular rhythm GI soft to palpation, non-tender and non-distended Extremity normal to inspection Neuro CN's II-XII intact bilaterally Lab / Micro Data Result Diagrams: 09/28/20 03:54 09/29/20 05:42 Labs: Laboratory Results - last 24 hr 09/27/20 09/29/20 14:20 05:42 Sodium 136 Potassium 4.6 Chloride 101 Carbon Dioxide 28.0 Anion Gap 7 BUN 14 Creatinine 0.89 Estim Creat Clear Calc 81.27 Est GFR (MDRD) Af Amer 105 Est GFR (MDRD) Non-Af 87 BUN/Creatinine Ratio 15.7 Glucose 89 Calcium 9.4 Total Bilirubin 2.10 H AST 273 H ALT 122 H Alkaline Phosphatase 506 H Total Protein 5.9 L Albumin 2.8 L Globulin 3.1 Albumin/Globulin Ratio 0.9 Carcinoembryonic Ag 1321.0 H CA 19-9 Antigen < 2
[2020-09-29 07:44] VITALS: O2SAT 90
[2020-09-29 09:00] VITALS: BP 124/73; PULSE 68; RESP 18; TEMP 36.8; O2SAT 94
[2020-09-29] MEDS: Lisinopril 20 MG Tablet PO (09:25)
[2020-09-29] MEDS: Enoxaparin 40 MG/0.4 ML Syringe SC (09:25)
--- NOTE | 2020-09-29 11:29 | PCM.PN.HOSP ---
Subjective Subjective Patient is an 80-year-old gentleman admitted with progressive generalized weakness and decreased appetite for the past 4 weeks. Imaging studies obtained on admission was consistent with ill-defined liver lesions worrisome for metastatic disease admitted to monitored bed for further management Objective Data Objective Data Vital Signs: Vital Signs Temp Pulse Resp BP Pulse Ox 98.3 F 68 18 124/73 H 94 09/29/20 09:00 09/29/20 09:00 09/29/20 09:00 09/29/20 09:00 09/29/20 09:00 Oxygen Delivery Method Room Air Weight: 105.6 kg Body Mass Index (BMI) 28.3 Intake & Output: Intake and Output for Last 24 Hours 09/27/20 09/28/20 09/29/20 23:59 23:59 23:59 Intake Total 1007.5 / 1307.5 3200.0 / 3500.0 420 / 420 Balance 1007.5 / 1307.5 3200.0 / 3500.0 420 / 420 Lab / Micro Data Result Diagrams: 09/28/20 03:54 09/29/20 05:42 Labs: Laboratory Results - last 24 hr 09/27/20 09/29/20 14:20 05:42 Sodium 136 Potassium 4.6 Chloride 101 Carbon Dioxide 28.0 Anion Gap 7 BUN 14 Creatinine 0.89 Estim Creat Clear Calc 81.27 Est GFR (MDRD) Af Amer 105 Est GFR (MDRD) Non-Af 87 BUN/Creatinine Ratio 15.7 Glucose 89 Calcium 9.4 Total Bilirubin 2.10 H AST 273 H ALT 122 H Alkaline Phosphatase 506 H Total Protein 5.9 L Albumin 2.8 L Globulin 3.1 Albumin/Globulin Ratio 0.9 Carcinoembryonic Ag 1321.0 H CA 19-9 Antigen < 2 Physical Exam Narrative GENERAL: cooperative HEENT: Atraumatic; EYES; Anicteric, Normal Conjunctiva NECK; supple, normal thyroid, RESPIRATORY: Diminished to auscultation CARDIOVASCULAR: Regular S1 S2, GI: soft, normoactive bowel sounds, : No Renal angle tenderness; EXTREMITIES: No edema, no clubbing, MUSCULOSKELETAL: no muscle waisting NEURO: Awake; no lateralizing signs. SKIN: No Rash PSYCH; Flat affect Assessment & Plan Assessment/Plan (1) Liver masses: (2) Transaminitis: (3) Hyperbilirubinemia: (4) Weight loss: (5) Weakness: (6) Lactic acidosis: PLAN: Patient is an 80-year-old gentleman admitted with progressive generalized weakness and decreased appetite for the past 4 weeks. Imaging studies obtained on admission was consistent with ill-defined liver lesions worrisome for metastatic disease admitted to monitored bed for further management 1. Multiple liver masses ?With high suspicion for metastatic disease. Admitted to monitored bed for subsequent management. As part of patient's evaluation CEA and CA 19-9 were ordered results pending. Consult was placed to general surgery patient seen by Dr. Sprague with plans for patient to undergo endoscopic evaluation (both upper and lower) on 10/01/2020. In the meantime patient has been scheduled to undergo liver biopsy on 09/30/2020. 2. Acute transaminitis ?Related to above monitoring counts 3. Hypertension - Blood pressure controlled, home medications continued with dose adjustment as needed 4. Dyslipidemia -Patient is on statin therapy, continued at home dose 5. History of myasthenia gravis ?Patient is on Mestinon did continue 6. BPH ?Patient is on Flomax 7. DVT prophylaxis ?Patient on Lovenox Visit Charges Inpatient E&M: 34667 Subs Hosp L2
[2020-09-29] MEDS: Lactated Ringers 1,000 ML 50 ML IV (14:59)
[2020-09-29 15:00] VITALS: BP 147/67; PULSE 67; RESP 18; TEMP 36.7; O2SAT 95
[2020-09-29] MEDS: Mag Hydrox/Al Hydrox/Simeth 30 ML UDC PO (19:37)
[2020-09-29 20:41] VITALS: BP 147/71; PULSE 65; RESP 20; TEMP 36.9; O2SAT 96
[2020-09-29] MEDS: MELATONIN 3 MG TABLET PO (20:52)
[2020-09-29] MEDS: Tamsulosin HCl 0.4 MG Capsule PO (20:52)
[2020-09-29] MEDS: Atorvastatin Calcium 10 MG Tablet PO (20:52)
[2020-09-30] VITALS (15 sets, daily range): BP systolic 128–179; BP diastolic 60–91; PULSE 66–72; RESP 18–36; TEMP 36.4–36.8; O2SAT 93–100; BMI 28.0
--- NOTE | 2020-09-30 | ASPIGT_PTH ---
PATIENT: AMANDA SANTAMARIA LOC: [facility] U#:[id number] AGE/SX: 80/M ROOM: [facility] RE09/27/[address]: Dr. Ryan Lizama MD : 1940 BED: 1 DIS: 10/01/2020 SPEC #: [id number] RECD: 09/30/20 10:30 STATUS: APOLONIA REQ #: [id number] EDWIN: 09/30/20 00:[address]: Aury Yuan DEPT: SURGICAL PATHOLOGY RECD BY: Bjorn Gregory ENTERED: 09/30/20 11:02 SP TYPE: ASP RAD OTHR DR: MD Dr. Kolby Zambrano MD Dr. David Kittoe, MD Dr. Kathryn Lee, DO Tissues: Liver, NOS Procedures: FNA Specimen Adequacy Special Stain Group II Surgery Specimen Level IV Imprint (control) Comments: @ Ordering doctor for SSII edited from to @ by HAILEY at 09/30/20 1242 @ Ordering doctor for SUIV edited from to @ by HAILEY at 09/30/20 1242 @ Ordering doctor for SUV edited from to @ by HAILEY at 09/30/20 1242 @ Ordering doctor for IMPRINT edited from to @ by HAILEY at 09/30/20 1242 @ Ordering doctor for FNASA edited from to @ by HAILEY at 09/30/20 1242 @ Submitting doctor edited from to @ by HAILEY at 09/30/20 1242 HEADER OPERATION: Liver lesion, CT-guided core biopsy PRE-OP DIAGNOSIS: Liver lesion TISSUE SUBMITTED: Liver lesion, CT-guided core biopsy MICROSCOPIC DIAGNOSIS Liver lesion, CT-guided core biopsy: Metastatic non-small cell carcinoma, favor adenocarcinoma. See comment. SJ:terrie 10/01/2020 COMMENT The specimen is evaluated at the time of biopsy by Dr. Garcia. Immediate Evaluation = Malignant cells present derived from non-small cell carcinoma. Immunohistochemistry ([id number]) supports the above diagnosis and compatible with gastric primary. Please also make reference to patient?s additional specimen, [id number], gastric mass, biopsy with diagnosis of ?moderately to poorly differentiated adenocarcinoma?. Correlation with clinical, radiologic findings and appropriate follow up are necessary. Case has been reviewed in consultation with Dr. Beck who concurs with the above diagnosis. IDC:AM MICROSCOPIC DESCRIPTION Slides are reviewed. GROSS DESCRIPTION Received in fixative is one container labeled with the patient's name and designated liver, CT-guided core biopsy. The specimen consists of multiple irregular fragments of alonso soft tissue that in aggregate measure 1 x 0.2 x 0.1 cm. The specimen is totally submitted in one cassette. Seven touch imprints are prepared at the time of core biopsy. / SJ:terrie 09/30/20 TC:0 CPT: 54455, 10504
--- NOTE | 2020-09-30 | IMM_PTH ---
PATIENT: AMANDA SANTAMARIA LOC: [facility] U#:[id number] AGE/SX: 80/M ROOM: [facility] RE09/27/[address]: Dr. Ryan Lizama MD : 1940 BED: 1 DIS: 10/01/2020 SPEC #: [id number] RECD: 09/30/20 11:34 STATUS: SOUVicente REQ #: [id number] EDWIN: 09/30/20 00:[address]: Aury Yuan DEPT: IMMUNOHISTOCHEMISTRY RECD BY: Sheri Turpin ENTERED: 09/30/20 11:35 SP TYPE: IMMUNO OTHR DR: MD Dr. Kolby Zambrano MD Dr. David Kittoe, MD Tissues: Liver, NOS Procedures: RCC (add) NAPSIN A (add) CK20 (add) CK5-6 (add) CK7 (add) CK8 (add) HEP PAR (add) TTF1 (add) Pankeratin (initial) P40 (add) PSAP (add) PHYSICIAN & [address] [address] SPECIMEN INFORMATION: Tissue Source: Liver, CT-guided biopsy Clinical Info: Liver lesions Specimen Number: [id number] CPT code: 09831, 15861 x10 METHODOLOGY: Deparaffinized sections of prefer/formalin-fixed tissue or PAP/DQ stained slides are incubated with monoclonal/polyclonal antibodies/oligonucleotide probes. Localization is made via biotin free immunoperoxidase method. Appropriate controls are performed and reacted as expected. Results on target cell population are indicated in the following table: RESULTS: ANTIBODY / CLONE RESULT AE1-3 (AE1/AE3/PCK26) positive CK7 (OV-TL12/30) positive CK8 (25nexyK20) positive CK20 (KS20.8) positive TTF-1 (8G7G3/1) negative Napsin A (Rabbit Polyclonal) negative HepPar (OCh1E5) negative RCC (PN-15) negative PSAP (PASE/4LJ) negative CK5-6 (D5 & 1684) negative P40 (BC28) negative These tests were developed and their performance characteristics determined by [facility]. They may not have been cleared or approved by the U.S. Food and Drug Administration. The FDA has determined that such clearance or approval is not necessary. The above immunohistochemical/dualISH markers are ordered and reviewed by the Pathologist. INTERPRETATION: Liver, CT-guided biopsy: Metastatic non-small cell carcinoma, favor adenocarcinoma. See comment. SJ:terrie 10/02/2020 Comment: IHC profile is compatible with gastric primary. Please also refer to patient?s additional specimen [id number], gastric mass, biopsy with diagnosis of moderately to poorly differentiated adenocarcinoma. This case has been reviewed in consultation with Dr. Beck who concurs with above diagnosis.
--- NOTE | 2020-09-30 06:49 | PCM.PN.SRG ---
Subjective Subjective No changes overnight Objective Data Objective Data Vital Signs: Vital Signs Temp Pulse Resp BP Pulse Ox 98 F 68 18 145/71 H 94 09/30/20 02:49 09/30/20 02:49 09/30/20 02:49 09/30/20 02:49 09/30/20 02:49 Oxygen Delivery Method Room Air Weight: 236 lb 15.951 oz Body Mass Index (BMI) 28.3 Intake & Output: Intake and Output for Last 24 Hours 09/28/20 09/29/20 09/30/20 23:59 23:59 23:59 Intake Total 3200.0 / 3500.0 1623.33 / 1623.33 Output Total 250 / 250 Balance 3200.0 / 3500.0 1623.33 / 1623.33 -250 / -250 Lab / Micro Data Result Diagrams: 09/28/20 03:54 09/29/20 05:42 Labs: Laboratory Results - last 24 hr 09/29/20 05:42 Sodium 136 Potassium 4.6 Chloride 101 Carbon Dioxide 28.0 Anion Gap 7 BUN 14 Creatinine 0.89 Estim Creat Clear Calc 81.27 Est GFR (MDRD) Af Amer 105 Est GFR (MDRD) Non-Af 87 BUN/Creatinine Ratio 15.7 Glucose 89 Calcium 9.4 Total Bilirubin 2.10 H AST 273 H ALT 122 H Alkaline Phosphatase 506 H Total Protein 5.9 L Albumin 2.8 L Globulin 3.1 Albumin/Globulin Ratio 0.9 Physical Exam Const oriented x3 and no apparent distress Resp normal respiratory effort Cardio regular rate and regular rhythm GI normal to inspection, nondistended, normoactive bowel sounds Assessment & Plan Assessment/Plan (1) Liver masses: PLAN: The patient has likely metastatic disease to the liver. His CEA is markedly elevated. Plan for EGD and colonoscopy tomorrow. Bowel prep today. Biopsies of liver have been ordered. Jozef Sprague MD Pager: [facility] [address] [place] [address], [address] [place] [address] Office:
[2020-09-30] MEDS: Midazolam 2 MG/2 ML Syringe IV (09:49)
[2020-09-30] MEDS: fentaNYL 100 MCG/2 ML Ampul IV (09:50)
--- NOTE | 2020-09-30 10:40 | PN.HOSP_ITS ---
Subjective Subjective Patient seen scheduled to undergo liver biopsy this a.m. Objective Data Objective Data Vital Signs: Vital Signs Temp Pulse Resp BP Pulse Ox 98.3 F 68 26 H 151/86 H 99 09/30/20 09:20 09/30/20 10:36 09/30/20 10:36 09/30/20 10:36 09/30/20 10:36 Oxygen Flow Rate (L/min) [7] 15 Oxygen Flow Rate (L/min) [6] 15 Oxygen Flow Rate (L/min) [5] 15 Oxygen Flow Rate (L/min) [4] 15 Oxygen Flow Rate (L/min) [3] 15 Oxygen Flow Rate (L/min) [2] 15 Oxygen Flow Rate (L/min) [1 ( 15 Initial Baseline)] Oxygen Flow Rate (L/min) 15 Oxygen Delivery Method [7] Non-Rebreather Oxygen Delivery Method [6] Non-Rebreather Oxygen Delivery Method [5] Non-Rebreather Oxygen Delivery Method [4] Non-Rebreather Oxygen Delivery Method [3] Non-Rebreather Oxygen Delivery Method [2] Non-Rebreather Oxygen Delivery Method [1 ( Non-Rebreather Initial Baseline)] Oxygen Delivery Method Non-Rebreather Weight: 104.326 kg Body Mass Index (BMI) 28.0 Intake & Output: Intake and Output for Last 24 Hours 09/28/20 09/29/20 09/30/20 23:59 23:59 23:59 Intake Total 3200.0 / 3500.0 1623.33 / 1623.33 Output Total 250 / 250 Balance 3200.0 / 3500.0 1623.33 / 1623.33 -250 / -250 Lab / Micro Data Result Diagrams: 09/28/20 03:54 09/29/20 05:42 Physical Exam Narrative GENERAL: cooperative HEENT: Atraumatic; EYES; Anicteric, Normal Conjunctiva NECK; supple, normal thyroid, RESPIRATORY: Diminished to auscultation CARDIOVASCULAR: Regular S1 S2, GI: soft, normoactive bowel sounds, : No Renal angle tenderness; EXTREMITIES: No edema, no clubbing, MUSCULOSKELETAL: no muscle waisting NEURO: Awake; no lateralizing signs. SKIN: No Rash PSYCH; Flat affect Assessment & Plan Assessment/Plan (1) Liver masses: (2) Transaminitis: (3) Hyperbilirubinemia: (4) Weight loss: (5) Weakness: (6) Lactic acidosis: PLAN: Patient is an 80-year-old gentleman admitted with progressive generalized weakness and decreased appetite for the past 4 weeks. Imaging studies obtained on admission was consistent with ill-defined liver lesions worrisome for metastatic disease admitted to monitored bed for further management 1. Multiple liver masses ?With high suspicion for metastatic disease. Admitted to monitored bed for subsequent management. As part of patient's evaluation CEA and CA 19-9 were ordered results pending. Consult was placed to general surgery patient seen by Dr. pSrague with plans for patient to undergo endoscopic evaluation (both upper and lower) on 10/01/2020. In the meantime patient has been scheduled to und ergo liver biopsy on 09/30/2020. ?09/30/2020; patient seen scheduled to undergo liver biopsy 2. Acute transaminitis ?Related to above monitoring counts 3. Hypertension - Blood pressure controlled, home medications continued with dose adjustment as needed 4. Dyslipidemia -Patient is on statin therapy, continued at home dose 5. History of myasthenia gravis ?Patient is on Mestinon did continue 6. BPH ?Patient is on Flomax 7. DVT prophylaxis ?Patient on Lovenox Visit Charges Inpatient E&M: 30115 Subs Hosp L2
[2020-09-30] MEDS: Lisinopril 20 MG Tablet PO (11:38)
[2020-09-30] MEDS: Lactated Ringers 1,000 ML 50 ML IV (11:56)
[2020-09-30] MEDS: 0.9% Saline Lock 10 ML Syringe IV (11:59)
--- NOTE | 2020-09-30 12:39 | CASEMGMT ---
SONIA SORTO assessment: Face to Face with patient for initial transition planning/care coordination assessment. RN NOREEN introduced self and role at [facility], pt voices understanding and consents to assessment. Pt is sitting up in bed in no distress on room air. Pt is A/Ox4 and answers all questions appropriately. Pt's is at bedside during assessment. Care providers, pharmacy, and demographics verified. Presentation: Pt with decreased intake for last 4weeks and is getting OP work up for gallstone/liver nodule Admitting dx: Abd pain, weakness PCP: [place] Specialists: [facility] Preferred Pharmacy: [facility] Insurance: [facility] Prescription Benefit: AnthR Living Will/HPOA: Pt has LW/HPOA and is aware that they are not on file at [facility]. Pt states his , Teena Nielson, is HPOA. LNOK: Teena Nielson, Living Arrangements: Pt states lives with in 2 story home. Pt states is independent with most ADL's but has had difficulty with fatigue/SOB when going upstairs. Transportation: Pt states drives self and states no transportation concerns. DME/HHC: Pt states has the following DME: cane, crutches, hospital bed, and walker. Pt states no hx of HHC but has been to [facility] in the past. Pt states no concerns with going home at time of discharge. Pt is retired. Pt states does not smoke cigarettes but does occasionally drink ETOH. Pt states no further concerns/needs. CM to follow for PT/OT evals, ambulatory pulse ox, and any further discharge planning/needs. Advised pt/ to ask for CM if any further questions/concerns/needs arise, voices understanding. Pt Goal: Home Plan: Home [place] SONIA SORTO
--- NOTE | 2020-09-30 13:00 | CT_ITS ---
PROCEDURE: CT GUIDED liver biopsy. DATE: 09/30/2020. INDICATION: Male, 80 years old. Multiple liver lesions. PHYSICIAN: Homar Mike M.D. RADIATION DOSAGE (If Supplied By Facility): CTDIvol = ( 19 ) mGy, DLP = ( 673.83 ) mGycm. Individualized dose optimization techniques were utilized. PROCEDURE: The risks, benefits, and alternatives to the procedure were explained to the patient. The specific risk of hemorrhage requiring further treatment or intervention was detailed and accepted. Follow-up instructions were discussed with the patient as well. Written informed consent was obtained. The patient was brought into the CT suite and placed in the supine position. . An appropriate entry site was identified. The overlying skin was prepped and draped in the usual sterile fashion. 1% lidocaine was administered subcutaneously for local anesthesia.. Conscious sedation was performed. The patient received 2 mg of VERSED and 50 mcg of FENTANYL intravenously. Conscious sedation was started at 9:50 AM 20 1:00 AM. The patient was independently monitored by department nurse. Under CT guidance, a total of 4 passes were performed of a nodule in the right lobe of the liver utilizing an 18-gauge core biopsy needle. The specimens were then placed in the appropriate fluid and transported to the laboratory for analysis. Hemostasis was obtained. The patient tolerated the procedure well without immediate complications. CT/Biopsy/Inj or Needle Placement IMPRESSION: Successful CT guided biopsy of the right lobe of the liver, as described above. Electronically Signed: Homar Mike MD at 11:11 EDT , Service support ,
[2020-09-30] MEDS: Bisacodyl 5 MG Tablet 20 MG PO (14:37)
[2020-09-30] MEDS: Polyethylene Glycol 3350 BOWEL PREP PO (17:00)
[2020-09-30] MEDS: MELATONIN 3 MG TABLET PO (22:05)
[2020-10-01] VITALS (8 sets, daily range): BP systolic 120–163; BP diastolic 55–92; PULSE 69–77; RESP 16–18; TEMP 36.4–37.1; O2SAT 91–96; BMI 28.0; BMI 28.9
--- NOTE | 2020-10-01 | IMM_PTH ---
PATIENT: AMANDA SANTAMARIA LOC: [facility] U#:[id number] AGE/SX: 80/M ROOM: [facility] RE09/27/[address]: Dr. Ryan Lizama MD : 1940 BED: 1 DIS: 10/01/2020 SPEC #: [id number] RECD: 10/02/20 11:14 STATUS: APOLONIA REQ #: [id number] EDWIN: 10/01/20 00:[address]: Jozef Sprague DEPT: IMMUNOHISTOCHEMISTRY RECD BY: Sheri Turpin ENTERED: 10/02/20 11:16 SP TYPE: IMMUNO OTHR DR: MD Dr. Ryan Davison MD Dr. Kathryn Lee, DO Tissues: Gastric mucous membrane Procedures: MSH2 (add) MLH-1 (add) MSH6 (add) Anti-PMS2 (add) CK20 (add) CK7 (add) CK8 (add) MAIN-2 (add) KI-67 (add) P53 (add) HER-2-ARYA (initial) PHYSICIAN & [address] [address] SPECIMEN INFORMATION: Tissue Source: Gastric mass biopsy Clinical Info: Metastatic disease to the liver, elevated CEA Specimen Number: [id number] CPT code: 82762, 75702 x10 METHODOLOGY: Deparaffinized sections of prefer/formalin-fixed tissue or PAP/DQ stained slides are incubated with monoclonal/polyclonal antibodies/oligonucleotide probes. Localization is made via biotin free immunoperoxidase method. Appropriate controls are performed and reacted as expected. Results on target cell population are indicated in the following table: RESULTS: ANTIBODY / CLONE RESULT CK7 (OV-TL12/30) positive CK8 (56jzapI02) positive CK20 (KS20.8) positive Ki-67 (30-9) positive, high P53 (DO-7) positive MAIN-2 (SP21) positive MLH-1 (M1) positive MSH2 (25D12) positive MSH6 (44) positive PMS2 (ZCH9811) positive Her-2neu (CB11) negative (0) These tests were developed and their performance characteristics determined by [facility]. They may not have been cleared or approved by the U.S. Food and Drug Administration. The FDA has determined that such clearance or approval is not necessary. The above immunohistochemical/dualISH markers are ordered and reviewed by the Pathologist. INTERPRETATION: Gastric mass, biopsy: Invasive adenocarcinoma. Result of Microsatellite Instability Study: Negative (no loss of mismatch protein; no microsatellite instability detected). SJ:terrie 10/03/2020
--- NOTE | 2020-10-01 05:55 | EKG12_ITS ---
Test Reason : AM EKG Blood Pressure : / mmHG Vent. Rate : 066 BPM Atrial Rate : 066 BPM P-R Int : 178 ms QRS Dur : 088 ms QT Int : 434 ms P-R-T Axes : 031 016 051 degrees QTc Int : 454 ms Sinus rhythm with Premature atrial complexes Otherwise normal ECG When compared with ECG of 28-SEP-2020 03:52, MANUAL COMPARISON REQUIRED, DATA IS UNCONFIRMED Confirmed by JEANNIE FRYE, YANIRA ([id number]), slot editor FREDA TAYLOR ([id number]) on 10/02/2020 12:42:13 PM Referred By: MASHA Confirmed By:YANIRA DENNIS MD
[2020-10-01] MEDS: Lactated Ringers 1,000 ML 50 ML IV (08:22)
--- NOTE | 2020-10-01 10:15 | EGD_PTH ---
PATIENT: AMANDA SANTAMARIA LOC: [facility] U#:[id number] AGE/SX: 80/M ROOM: [facility] RE09/27/[address]: Dr. Ryan Lizama MD : 1940 BED: 1 DIS: 10/01/2020 SPEC #: [id number] RECD: 10/01/20 10:27 STATUS: APOLONIA HUMPHREY #: [id number] EDWIN: 10/01/20 10:[address]: Jozef Sprague DEPT: SURGICAL PATHOLOGY RECD BY: Bjorn Gregory ENTERED: 10/01/20 11:25 SP TYPE: EGD BIOPSY ANTONIETTA DR: MD Dr. Ryan Davison MD Dr. 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 See comment. LIANA:terrie 10/02/2020 COMMENT Immunohistochemistry for MSI/mismatched repair of protein ([id number]) will be performed and results will be reported separately. Please make reference to previous specimen ([id number]) liver lesion, CT-guided core biopsy with diagnosis of ?metastatic non-small cell carcinoma, favor adenocarcinoma.? Case has been reviewed in consultation with Dr. Beck who concurs with the above diagnosis. IDC:AM MICROSCOPIC DESCRIPTION Slides are reviewed. GROSS DESCRIPTION Received in fixative is one container labeled with the patient's name and designated gastric mass biopsy. The specimen consists of multiple irregular fragments of light alonso soft tissue that in aggregate measure 1 x 0.5 x 0.1 cm. The specimen is totally submitted in one cassette. / LIANA:terrie 10/01/20 TC:0 CPT: 05095
--- NOTE | 2020-10-01 10:23 | PCM.PN.BLA ---
Progress Note I performed an EGD and colonoscopy on the patient this morning. The colon was normal. The patient had a what appeared to be a malignant mass in the greater curvature of the stomach. This did not involve the GE junction or esophagus. Biopsies were obtained. I have ordered the patient a regular diet he may be discharged home from my standpoint. He should follow up with an oncologist to establish care and discuss treatment options. Jozef Sprague MD Pager: [facility] [address] [place] [address] Office:
--- NOTE | 2020-10-01 11:16 | DS.PCM_ITS ---
Providers Date of Admission: 09/27/20 Primary Care Physician: Dr. Kolby Singh MD Consultations 09/28/20 13:22 Consult: General Surgery Routine Consulting Provider: Jozef Sprague Reason for Consult: Liver masses EMERGENT Consult: No MD Notified: Yes Date Notified:: 09/28/20 Time Notified: 13:23 Method of Notification: Verbal Reason For Visit: ABDOMINAL PAIN/GENERALIZED WEAKNESS Diagnosis Discharge Diagnosis (1) Liver masses: Status: Acute Code(s): R16.0 - Hepatomegaly, not elsewhere classified (2) Transaminitis: Status: Acute Code(s): R74.01 - Elevation of levels of liver transaminase levels (3) Hyperbilirubinemia: Status: Acute Code(s): E80.6 - Other disorders of bilirubin metabolism (4) Weight loss: Status: Acute Code(s): R63.4 - Abnormal weight loss (5) Weakness: Status: Acute Code(s): R53.1 - Weakness (6) Lactic acidosis: Status: Acute Code(s): E87.2 - Acidosis (7) Gastric cancer: Status: Acute Code(s): C16.9 - Malignant neoplasm of stomach, unspecified Medications at Discharge Home Medications Tamsulosin Hcl 4 mg PO QHS 07/11/18 aspirin [Aspir-81] 81 mg PO DAILY 07/11/18 lisinopril 20 mg PO DAILY 07/11/18 multivitamin with minerals [Multiple Vitamin-Minerals] 1 ea PO DAILY 07/11/18 simvastatin 20 mg PO QHS 07/11/18 azathioprine 200 mg PO DAILY 09/27/20 prednisone 7.5 mg PO DAILY 09/27/20 pyridostigmine bromide 30 mg PO BID 09/27/20 food supplemt, lactose-reduced [Ensure Enlive] 120 ml PO TID #90 ea 10/01/20 Hospital Course Summary of Care Provided Minutes Spent on Discharge: 35 Hospital Course: Patient is an 80-year-old gentleman admitted with progressive generalized weakness and decreased appetite for the past 4 weeks. Imaging studies obtained on admission was consistent with ill-defined liver lesions worrisome for metastatic disease admitted to monitored bed for further management 1. Multiple liver masses secondary to gastric malignancy with metastasis to the liver ?With high suspicion for metastatic disease. Admitted to monitored bed for subsequent management. As part of patient's evaluation CEA and CA 19-9 were ordered results pending. Consult was placed to general surgery patient seen by Dr. Sprague with plans for patient to undergo endoscopic evaluation (both upper and lower) on 10/01/2020. In the meantime patient has been scheduled to undergo liver biopsy on 09/30/2020. ?09/30/2020; patient seen scheduled to undergo liver biopsy -10/20/2020; patient underwent EGD and colonoscopy by Dr. Sprague. Findings are as below The colon was normal. The patient had a what appeared to be a malignant mass in the greater curvature of the stomach. This did not involve the GE junction or esophagus. Biopsies were obtained. Results of patient biopsies pending at the time of discharge Subsequent follow-up was set up with general surgery as well as [facility] for subsequent care 2. Acute transaminitis ?Related to above monitoring counts 3. Hypertension - Blood pressure controlled, home medications continued with dose adjustment as needed 4. Dyslipidemia -Patient is on statin therapy, continued at home dose 5. History of myasthenia gravis ?Patient is on Mestinon did continue 6. BPH ?Patient is on Flomax 7. DVT prophylaxis ?Patient on Lovenox Physical Exam Narrative ENERAL: cooperative HEENT: Atraumatic; EYES; Anicteric, Normal Conjunctiva NECK; supple, normal thyroid, RESPIRATORY: Diminished to auscultation CARDIOVASCULAR: Regular S1 S2, GI: soft, normoactive bowel sounds, : No Renal angle tenderness; EXTREMITIES: No edema, no clubbing, MUSCULOSKELETAL: no muscle waisting NEURO: Awake; no lateralizing signs. SKIN: No Rash PSYCH; Flat affect ABG / Lab / Microbiology Data Result Diagrams: 09/28/20 03:54 09/29/20 05:42 D/C Instructions Discharge Diet: No restrictions and Soft diet Discharge Activity: Return to Normal Activity Call your doctor if you observe: Fever of 101 or Higher, Shortness of breath, Fainting spells, Chest pain and Uncontrolled pain Meaningful Use Info Meaningful Use Diagnoses (Choose all that apply): None applicable Discharge Plan Admission Admit Date/Time: 09/27/20 13:00 Primary Reason for Your Visit: Gastric malignancy with mets to the liver Attending Provider: Ryan Lizama Primary Care Provider: Kolby Singh Consulting Providers: Jozef Sprague Instructions Patient Instructions: Liver Biopsy, ED Procedural Sedation, (Adult) Discharge Orders/Prescriptions Prescriptions: New Ensure Enlive 0.08 gram-1.5 kcal/mL Liquid 120 ml PO TID Qty: 90 RF: 0 Continued aspirin [Aspir-81] 81 MG tablet,delayed release (DR/EC) 81 mg PO DAILY RF: 0 simvastatin 20 tablet 20 mg PO QHS RF: 0 multivitamin with minerals [Multiple Vitamin-Minerals] 1 EACH tablet 1 ea PO DAILY RF: 0 lisinopril 40 tablet 20 mg PO DAILY RF: 0 Tamsulosin Hcl 0.4 MG capsule 4 mg PO QHS RF: 0 prednisone 5 mg tablet 7.5 mg PO DAILY RF: 0 azathioprine 50 mg tablet 200 mg PO DAILY RF: 0 pyridostigmine bromide 60 mg tablet 30 mg PO BID RF: 0 Referrals / Follow Up: Jozef Sprague MD [STAFF PHYSICIAN] - In 1 Week Kolby Singh MD [Primary Care Provider] - In 1 Week Juno Chilel MD [NON-STAFF] - In 1 Week Disposition Disposition (needs filled in before D/C Order can be placed): Home, self care Visit Charges Inpatient E&M: 07525 Disch Hosp
--- NOTE | 2020-10-01 11:24 | DCINST_ITS ---
Discharge Instructions Diet Discharge Diet: No restrictions and Soft diet Activity Discharge Activity: Return to Normal Activity Dressing / Incision Call your doctor if you observe: Fever of 101 or Higher, Shortness of breath, F ainting spells, Chest pain and Uncontrolled pain Follow Up Care Test Results: Test results from this visit will be discussed in further detail at your follow-up appointment, if applicable. Discharge Plan Admission Admit Date/Time: 09/27/20 13:00 Primary Reason for Your Visit: Gastric malignancy with mets to the liver Attending Provider: Ryan Lizama Primary Care Provider: Kolby Singh Consulting Providers: Jozef Sprague Instructions Patient Instructions: Liver Biopsy, ED Procedural Sedation, (Adult) Discharge Orders/Prescriptions Prescriptions: New Ensure Enlive 0.08 gram-1.5 kcal/mL Liquid 120 ml PO TID Qty: 90 RF: 0 Continued aspirin [Aspir-81] 81 MG tablet,delayed release (DR/EC) 81 mg PO DAILY RF: 0 simvastatin 20 tablet 20 mg PO QHS RF: 0 multivitamin with minerals [Multiple Vitamin-Minerals] 1 EACH tablet 1 ea PO DAILY RF: 0 lisinopril 40 tablet 20 mg PO DAILY RF: 0 Tamsulosin Hcl 0.4 MG capsule 4 mg PO QHS RF: 0 prednisone 5 mg tablet 7.5 mg PO DAILY RF: 0 azathioprine 50 mg tablet 200 mg PO DAILY RF: 0 pyridostigmine bromide 60 mg tablet 30 mg PO BID RF: 0 Referrals / Follow Up: Jozef Sprague MD [STAFF PHYSICIAN] - In 1 Week Kolby Singh MD [Primary Care Provider] - In 1 Week Juno Chilel MD [NON-STAFF] - In 1 Week Disposition Disposition (needs filled in before D/C Order can be placed): Home, self care
[2020-10-01] MEDS: Lisinopril 20 MG Tablet PO (11:25)
--- NOTE | 2020-10-01 11:40 | CASEMGMT ---
Pt has been up independent in room and no therapy recommended at this time. Pt/ voices no further questions/concerns/needs. Yady SCOTT CM
--- NOTE | 2020-10-01 11:49 | PHA.DC.MR ---
Pharmacy Service has performed discharge medication reconciliation for this patient. The patient's discharge medication list was reviewed for discrepancies and discrepancies were resolved. Home Medications Tamsulosin Hcl 4 mg PO QHS 07/11/18 aspirin [Aspir-81] 81 mg PO DAILY 07/11/18 lisinopril 20 mg PO DAILY 07/11/18 multivitamin with minerals [Multiple Vitamin-Minerals] 1 ea PO DAILY 07/11/18 simvastatin 20 mg PO QHS 07/11/18 azathioprine 200 mg PO DAILY 09/27/20 prednisone 7.5 mg PO DAILY 09/27/20 pyridostigmine bromide 30 mg PO BID 09/27/20 food supplemt, lactose-reduced [Ensure Enlive] 120 ml PO TID #90 ea 10/01/20
--- NOTE | 2020-10-03 15:09 | OP.COLON_ITS ---
Patient Name: Burke Nielson Procedure Date: 10/01/2020 10:04 AM Date of : 1940 Age: 80 Procedure: Colonoscopy Indications: Metastatic malignancy to liver Providers: Jozef Sprague MD Medicines: Monitored Anesthesia Care Patient Profile: This is an 80 year old male. Refer to note in patient chart for documentation of history and physical. Last Colonoscopy: several years ago. Complications: No immediate complications. Procedure: Pre-Anesthesia Assessment: - Prior to the procedure, a History and Physical was performed, and patient medications and allergies were reviewed. The patient's tolerance of previous anesthesia was also reviewed. The risks and benefits of the procedure and the sedation options and risks were discussed with the patient. All questions were answered, and informed consent was obtained. Prior Anticoagulants: The patient has taken no previous anticoagulant or antiplatelet agents. After reviewing the risks and benefits, the patient was deemed in satisfactory condition to undergo the procedure. After I obtained informed consent, the scope was passed under direct vision. Throughout the procedure, the patient's blood pressure, pulse, and oxygen saturations were monitored continuously. The Colonoscope was introduced through the anus and advanced to the cecum, identified by appendiceal orifice and ileocecal valve. Scope In: 10:07:03 AM Scope Withdrawal Time 0 hours 6 minutes 4 seconds Scope Out: 10:15:03 AM Total Procedure Duration Time 0 hours 8 minutes 0 seconds Findings: The entire examined colon appeared normal on direct and retroflexion views. Impression: - The entire examined colon is normal on direct and retroflexion views. - No specimens collected. Recommendation: - [facility]. - Resume previous diet. - Continue present medications. - Repeat colonoscopy is not recommended due to current age (66 years or older) for screening purposes. Procedure Code(s): --- Professional --- 18976, Colonoscopy, flexible; diagnostic, including collection of specimen(s) by brushing or washing, when performed (separate procedure) Diagnosis Code(s): --- Professional --- C78.7, Secondary malignant neoplasm of liver and intrahepatic bile duct CPT copyright 2017 [employer]. All rights reserved. The codes documented in this report are preliminary and upon tank insulator rubber review may be revised to meet current compliance requirements. Jozef Sprague MD 10/01/2020 10:21:29 AM This report has been signed electronically. Number of Addenda: 0 Note Initiated On: 10/01/2020 10:04 AM
--- NOTE | 2020-10-03 15:09 | OP.EGD_ITS ---
Patient Name: Burke Nielson Procedure Date: 10/01/2020 9:50 AM Date of : 1940 Age: 80 Procedure: Upper GI endoscopy Indications: Metastatic malignancy to liver Providers: Jozef Sprague MD Medicines: Monitored Anesthesia Care Patient Profile: This is an 80 year old male. Refer to note in patient chart for documentation of history and physical. Complications: No immediate complications. Estimated blood loss: Minimal. Procedure: Pre-Anesthesia Assessment: - Prior to the procedure, a History and Physical was performed, and patient medications and allergies were reviewed. The patient's tolerance of previous anesthesia was also reviewed. The risks and benefits of the procedure and the sedation options and risks were discussed with the patient. All questions were answered, and informed consent was obtained. Prior Anticoagulants: The patient has taken no previous anticoagulant or antiplatelet agents. After reviewing the risks and benefits, the patient was deemed in satisfactory condition to undergo the procedure. After obtaining informed consent, the endoscope was passed under direct vision. Throughout the procedure, the patient's blood pressure, pulse, and oxygen saturations were monitored continuously. The gastroscope was introduced through the mouth, and advanced to the second part of duodenum. The upper GI endoscopy was accomplished without difficulty. The patient tolerated the procedure well. Scope In: 9:59:54 AM Scope Out: 10:03:37 AM Total Procedure Duration Time 0 hours 3 minutes 43 seconds Findings: The esophagus was normal. The examined duodenum was normal. A large, fungating, non-circumferential mass with oozing bleeding and stigmata of recent bleeding was found in the gastric body. Biopsies were taken with a cold forceps for histology. Impression: - Normal esophagus. - Normal examined duodenum. - Likely malignant gastric tumor in the gastric body. Biopsied. Recommendation: - Return patient to [facility] for ongoing care. - Resume previous diet. - Continue present medications. Procedure Code(s): --- Professional --- 01259, Esophagogastroduodenoscopy, flexible, transoral; with biopsy, single or multiple Diagnosis Code(s): --- Professional --- D49.0, Neoplasm of unspecified behavior of digestive system C78.7, Secondary malignant neoplasm of liver and intrahepatic bile duct CPT copyright 2017 [employer]. All rights reserved. The codes documented in this report are preliminary and upon manager search review may be revised to meet current compliance requirements. Jozef Sprague MD 10/01/2020 10:20:12 AM This report has been signed electronically. Number of Addenda: 0 Note Initiated On: 10/01/2020 9:50 AM
--- NOTE | 2020-10-03 15:09 | OP.CCLET_ITS ---
10/01/2020 Kolby Singh Re : Upper GI endoscopy procedure for Burke Singh This procedure was performed on Thursday, October 01, 2020. My impressions and recommendations are as follows: Impressions : - Normal esophagus. - Normal examined duodenum. - Likely malignant gastric tumor in the gastric body. Biopsied. Recommendations : - [facility] patient to [facility] care. - Resume previous diet. - Continue present medications. My findings are described in the full procedure note, which is enclosed. If I can be of further assistance, please feel free to contact me at Doctor phone number(s): , Work: . Sincerely, Jozef Sprague MD 10/01/2020 10:20:12 AM This report has been signed electronically.
--- NOTE | 2020-10-03 15:09 | OP.CCLET_ITS ---
10/01/2020 Kolby Singh Re : Colonoscopy procedure for Burke Singh This procedure was performed on Thursday, October 01, 2020. My impressions and recommendations are as follows: Impressions : - The entire examined colon is normal on direct and retroflexion views. - No specimens collected. Recommendations : - Return patient to [facility] for [facility] care. - Resume previous diet. - Continue present medications. - Repeat colonoscopy is not recommended due to current age (66 years or older) for screening purposes. My findings are described in the full procedure note, which is enclosed. If I can be of further assistance, please feel free to contact me at Doctor phone number(s): , Work: . Sincerely, Jozef Sprague MD 10/01/2020 10:21:29 AM This report has been signed electronically.
== END 2020-10-01 13:00 | disposition home or self-care (01) | DRG 436 ==
LOC: ED 12:48 → PCU 16:33
PROVIDERS: Hospitalist; Surgery; Admitting Provider Internal Medicine; Emergency Provider Emergency Medicine; PCP Family Medicine; Visit Provider Internal Medicine
PROC: 0DJD8ZZ Inspection of Lower Intestinal Tract, Via Natural or Artificial Opening Endoscopic (ICD-10-PCS; CPT 45378; principal; 2020-10-01 10:10)
DX: C78.7 Secondary malignant neoplasm of liver and intrahepatic bile duct (principal); C16.2 Malignant neoplasm of body of stomach; K40.20 Bilateral inguinal hernia, without obstruction or gangrene, not specified as recurrent; E87.2 Acidosis; E44.0 Moderate protein-calorie malnutrition; E78.5 Hyperlipidemia, unspecified; G70.00 Myasthenia gravis without (acute) exacerbation; N40.0 Benign prostatic hyperplasia without lower urinary tract symptoms; I10 Essential (primary) hypertension; R53.1 Weakness; R63.4 Abnormal weight loss; Z68.28 Body mass index [BMI] 28.0-28.9, adult; Z97.4 Presence of external hearing-aid; Z90.49 Acquired absence of other specified parts of digestive tract; Z87.891 Personal history of nicotine dependence; Z80.0 Family history of malignant neoplasm of digestive organs
CPT/HCPCS: 36415; 71045; 71250; 74177; 77012; 80053; 81001; 82378; 83605; 83690; 83735; 84100; 84153; 84443; 84484; 85025; 85049; 85610; 85730; 86301; 88172; 88305; 88307; 88313; 88341; 88342; 93005; 97116; 97162; 97530; 97802; 99156; 99157; 99251; 99284; J7030; J7040; J7120; Q9967; A4216; G0463; J2405